=== PATIENT | male | born 1955 | race Caucasian/White ===

== ENCOUNTER → 2018-01-07 | Outpatient (REF) | payer OTHER ==
[2018-01-07 11:18] LABS: COLLAGEN EPINEPHRINE 108 SECONDS (74-162)
== END ==
LOC: M LAB REF 10:35
DX: H05 Disorders of orbit (principal); H02.831 Dermatochalasis of right upper eyelid; H02.834 Dermatochalasis of left upper eyelid
CPT/HCPCS: 85576

== ENCOUNTER 2020-01-04 14:31 | Inpatient (IN) | payer BC, SELFPAY ==
[~2020-01-04] VITALS: Ht 180.3 cm; Wt 97.0 kg
[~2020-01-04 14:31] MED LIST: ASPI325T PO; CENTTAB47 PO; FENO54TA2 PO; LORTTAB5 PO; MILK10SU PO; SIMV40TA2 PO; [UNRECOGNIZED DRUG - CODE] PO
[2020-01-04 16:25] VITALS: BP 155/85
[2020-01-04] MEDS ORDERED: ACETAMINOPHEN TAB 650MG DOSE (2X325MG) PO PRN (17:00)
[2020-01-04] MEDS: D5W/0.45% SODIUM CHLORIDE 1,000 ML IV SCH (18:12)
[2020-01-04] MEDS ORDERED: KETOROLAC 30 MG/ML VIAL (J1885) IV PRN (18:15)
[2020-01-04 18:26] LABS: HEMATOCRIT 46.5 % (42.0-52.0); HEMOGLOBIN 16.2 g/dl (13.5-17.5); MEAN CORPUSCULAR HEMOGLOBIN 30.6 pg (27.0-33.0); MEAN CORPUSCULAR HGB CONC 34.8 g/dl (32.0-36.5); MEAN CORPUSCULAR VOLUME 87.9 fl (80.0-96.0); PLATELET COUNT, AUTOMATED 346 10^3/uL (150-450); RED BLOOD COUNT 5.29 10^6/uL (4.30-6.10); WHITE BLOOD COUNT 12.8 10^3/uL (4.0-10.0)
[2020-01-04 18:37] LABS: INR 1.07; PROTHROMBIN TIME 13.6 SECONDS (11.8-14.0)
--- NOTE | 2020-01-04 18:43 | HPEPDOC ---
[facility] Medical History & Physical Date of Admission Jan 04, 2020 Date of Service: Jan 04, 2020 Attending Physician: ARUNA CASANOVA MD History and Physical CHIEF COMPLAINT: Abdominal pain HISTORY OF PRESENT ILLNESS: Mr. Parrish is a 64 YOM who presented to [place] for acute abdominal pain. He states that this pain began last night while at work, roughly around 3am. He describes the pain as a vague, diffuse pain located around his mid epigastrium rated as a 9/10 pain. He states that he has not had a previous episode of pain like this and endorses no alleviating or remitting factors. In addition he has had a decreased appetite accompanied with nausea without emesis. In addition he noticed a decreased frequency and size of bowel movements over the past few days and has had decreased flatus. He had a small bowel movement this AM shortly after the pain began and denies tarry stool or johnna blood. Constitutional: Denies weight loss, weight gain, fevers, chills, or night sweats Eyes: Denies visual changes, double vision, blurry vision, floaters, or feeling like a curtain pulled down. Ear nose throat: Denies runny nose, epistaxis, sinus pain, tinnitus, sore throat, or odynophasia Cardiovascular: Denies chest pain, shortness of breath, paroxysmal nocturnal dyspnea, orthopnea, edema, or palpitations. Respiratory: Denies cough, sputum production, wheezes, hemoptysis, or shortness of breath Gastrointestinal: Endorses abdominal pain, loss of appetite and nausea w/o vomitting. Denies difficulty swallowing, vomiting, diarrhea, constipation hematemesis, hematochezia, melena, or tenesmus Genitourinary: Denies hematuria, polyuria, dysuria, hesitancy, or dribbling Musculoskeletal: Denies joint swelling, decreased range of motion, crepitus, or new arthritis Integumentary: Denies pruritus, rashes, or lesions Neuro: Denies any changes to sight/smell/hearing/taste, seizures, faint, headaches, paresthesias, anesthesias Psychiatric: Endorses depression, denies anxiety, paranoia, anhedonia, or episodes of campbell Endocrine: Denies diarrhea, increased appetite, tremor, palpitations, constipation, dry skin, polydipsia, polyuria, polyphagia Hematologic: Denies any anemia, purpura, or petechiae. No easy bruising or bleeding Lymphatic: Denies any new lumps or bumps anywhere. PAST MEDICAL HISTORY: 1. HTN 2. Hyperlipidemia 3. Depression 4. Diverticulosis PAST SURGICAL HISTORY: 1. Ventral herniorrhaphy 2. Right inguinal herniorrhaphy X4 3. Cholecystectomy 4. Colonoscopy >10 years prior SOCIAL HISTORY: Marital status: Single Resides: Alone Employment: [employer] Tobacco use: Denies current use. Smoked during adolescents. ETOH: Denies Illicit drug use: Cocaine use 30 years ago. Weekly marijuana use. IV drug use: Denies FAMILY HISTORY: Father: DM, CAD, Colon CA Mother: DM, CAD, Lung CA Siblings: Brother-unknown CA ALLERGIES: Please see below. REVIEW OF SYSTEMS: CONSTITUTIONAL: Endorses decreased appetite and nausea. Denies fever, chills, fatigue, weight loss. HOME MEDICATIONS: Please see below. PHYSICAL EXAMINATION: VITAL SIGNS: See below. GENERAL APPEARANCE: 64 year old man appearing older than stated age laying on hospital bed in mild distress. HEENT: Atraumatic, normocephalic, anicteric sclera, moist mucus membranes, no adenopathy. CARDIOVASCULAR: RRR w/o murmurs, rubs, or gallops. RESPIRATORY: Lungs CTA bilaterally in all cuellar w/o rales, rhonchi, or wheezing. GASTROINTESTINAL: Distended abd with a well healed ventral scar and multiple scars from prior laparoscopic instrumentation. Distant and hypoactive bowel sounds noted throughout. Tympanic to percussion in the upper quadrants. Tenderness noted on exam with point of maximal tenderness in the L upper quadrant. No organomegaly appreciated. No guarding, rigidity, or rebound tenderness noted. MUSCULOSKELETAL: Full range of motion in all 4 extremities with 5/5 strength. NEURO: A&O x3, sensation intact in all extremities LABORATORY DATA: See below. IMAGING: CT abd/pelvis with contrast from [facility]: "Appendix normal, mild to moderately dilated loops of small bowel, diverticulosis without signs of diverticulitis" MICROBIOLOGY: Please see below. ASSESSMENT/PLAN: This is a 64 year old man transferred from [place] for abdominal pain, decreased appetite, decreased bowel movements, and lack of passing gas, with CT of abdomen showing dilated loops. He was transferred for suspected small bowel obstruction possibly secondary to adhesions as a result of his multiple abdominal surgeries. Dr. Pelayo director distribution general surgeon has been consulted and has agreed to see the patient. 1. Suspected small bowel obstruction possibly 2/2 adhesions -Keep pt NPO with sips and chips. IVF on board -NG tube placement with low interment suctioning -Encourage early and frequent ambulation -Pain control with prn Toradol. Resting comfortably upon reassessment -Surgery consulted, appreciate Dr. Pelayo's input: NGT, IVF, sips/chips 2. Lactic acidosis -Mild elevation at 2.6 at [facility] -Pt does not appear septic, afebrile, vitals stable -Likely secondary due to acute abdominal process. No suspected infectious source -Continue IVF, repeat labs pending 3. HTN -controlled w/o medications -will monitor 4. Hyperlipidemia -Hold home meds as pt is NPO 5. Hyperglycemia -No definitive diagnosis of diabetes -Will continue to monitor and recommend outpatient f/u DVT Prophylaxis: Mechanical Code Status: DNR/DNI discussed in depth with patient. Disposition: Admission to medical service pending surgery evaluation, labs, imaging. Home Medications Scheduled (Centrum) Tab, 1 TAB PO DAILY Acetaminophen (Tylenol) 80 Mg Chew, 650 MG PO Every 4hrs as needed Acetaminophen/Hydrocodone (Lortab 7.5/500) 1 Tab Tab, 1 TAB PO Every 4-6hrs as need Aspirin (Aspirin) 325 Mg Tab, 325 MG PO Q2D Fenofibrate (Fenofibrate) 54 Mg Tab, 54 MG PO DAILY Magnesium Hydroxide (Milk of Magnesia) 400 Ml Conc, 30 ML PO DAILYPRN Simvastatin (Simvastatin) 40 Mg Tab, 40 MG PO DAILY Allergies Coded Allergies: Penicillins (Verified Allergy, Severe, RESP DEPRESSION/SOB, 01/04/20) A-FIB/CHADSVASC A-FIB History Current/History of A-Fib/PAF?: No Current PO Anticoag Therapy: No GME ATTESTATION GME ATTESTATION My faculty preceptor for this patient encounter was physically present during the encounter and was fully available. All aspects of the patient interview, examination, medical decision making process, and medical care plan development were reviewed and approved by the faculty preceptor. The faculty preceptor is aware and concurs with the plan as stated in the body of this note and will attest to such by his/her cosignature. RENARD RUSSELL OMS-3 Jan 04, 2020 18:43
[2020-01-04 18:58] LABS: ALBUMIN 3.7 GM/DL (3.2-5.2); ALT/SGPT 41 U/L (12-78); BILIRUBIN,TOTAL 0.6 MG/DL (0.2-1.0); BLOOD UREA NITROGEN 11 MG/DL (7-18); CALCIUM LEVEL 8.6 MG/DL (8.8-10.2); CARBON DIOXIDE LEVEL 26 MEQ/L (21-32); CHLORIDE LEVEL 108 MEQ/L (98-107); CK-MB VALUE MASS 9.8 NG/ML (<3.6); CPK CREATINE PHOSPHOKINASE 368 U/L (39-308); CREATININE FOR GFR 0.87 MG/DL (0.70-1.30); GLOMERULAR FILTRATION RATE > 60.0 (>49); GLUCOSE, FASTING 106 MG/DL (70-100); MB/CK RELATIVE INDEX 2.66 (< OR =4); SODIUM LEVEL 140 MEQ/L (136-145); TOTAL PROTEIN 6.6 GM/DL (6.4-8.2); TROPONIN I < 0.02 NG/ML (< 0.10)
--- NOTE | 2020-01-04 19:30 | REP ---
Portable chest x-ray: Single view. History: Abdomen pain. Comparison study: April 23, 2013. Findings: Nasogastric tube enters left upper quadrant of the abdomen. There is minimal discoid atelectasis at the left base along the left hemidiaphragm. Lungs are otherwise symmetrically aerated and clear. Heart is not enlarged. Pleural angles themselves are sharp. Impression: Minimal plate-like atelectasis left base. NG tube in place. Otherwise no acute disease. Electronically Signed by Rakesh Guerra MD 01/04/2020 07:21 P
--- NOTE | 2020-01-04 19:32 | REP ---
KUB: Two views. History: Abdomen pain Comparison radiographs April 23, 2013. Findings: There is a surgical clip in the right upper quadrant of the abdomen. The urine is somewhat distended with contrast opacified urine apparently related to recent CT scanning or other contrast administration. There is air and stool in a nondistended colon proximally and distally. There is a dilated small bowel loops filled with air in the left mid abdomen question ileus versus obstruction. Psoas margins are intact. Impression: NG tube to the left upper quadrant. Dilated small bowel loops in the left central abdomen, ileus versus early or partial obstruction. Surgical clip right upper quadrant. Urinary bladder is distended with contrast opacified urine. Electronically Signed by Rakesh Guerra MD 01/04/2020 07:23 P
[2020-01-04 22:00] VITALS: BP 152/83
[2020-01-05 06:00] VITALS: BP 149/83
[2020-01-05] MEDS: D5W/0.45% SODIUM CHLORIDE 1,000 ML IV SCH ×2 (06:22→21:53)
[2020-01-05 07:16] LABS: BASO # 0.1 10^3/uL (0.0-0.2); BASO % 0.5 % (0.0-1.0); EOS # 0.2 10^3/uL (0.0-0.5); EOS % 1.8 % (0.0-3.0); HEMATOCRIT 45.4 % (42.0-52.0); HEMOGLOBIN 15.4 g/dl (13.5-17.5); LYMPH # 1.3 10^3/uL (1.5-5.0); LYMPH % 12.8 % (24.0-44.0); MEAN CORPUSCULAR HEMOGLOBIN 30.3 pg (27.0-33.0); MEAN CORPUSCULAR HGB CONC 33.9 g/dl (32.0-36.5); MEAN CORPUSCULAR VOLUME 89.2 fl (80.0-96.0); MONO % 9.2 % (0.0-5.0); NEUTROPHILS # 7.8 10^3/uL (1.5-8.5); NEUTROPHILS % 75.5 % (36.0-66.0); PLATELET COUNT, AUTOMATED 308 10^3/uL (150-450); RED BLOOD COUNT 5.09 10^6/uL (4.30-6.10); WHITE BLOOD COUNT 10.3 10^3/uL (4.0-10.0)
[2020-01-05 07:36] LABS: BLOOD UREA NITROGEN 9 MG/DL (7-18); CARBON DIOXIDE LEVEL 28 MEQ/L (21-32); CHLORIDE LEVEL 108 MEQ/L (98-107); CREATININE FOR GFR 0.88 MG/DL (0.70-1.30); GLOMERULAR FILTRATION RATE > 60.0 (>49); GLUCOSE, FASTING 114 MG/DL (70-100); MAGNESIUM LEVEL 2.2 MG/DL (1.8-2.4); POTASSIUM SERUM 3.6 MEQ/L (3.5-5.1); SODIUM LEVEL 140 MEQ/L (136-145)
[2020-01-05] MEDS: PANTOPRAZOLE 40MG INJ (PROTONIX) (C9113) IV SCH (08:36)
--- NOTE | 2020-01-05 13:09 | IPNPDOC ---
Text Note Date of Service The patient was seen on 01/05/20. NOTE S: Pt examined at bedside. Pt states that he is feeling better since the NGT was placed. He was able to sleep through the night without event. He states this morning that he is having less pain and that he feels less bloated. He has still not had a bowel movement or passed flatus. He denied any CP/SOB/Fever/Chills. PE: Vitals: see below General: NAD, A&Ox3, resting comfortably in bed HEENT: NCAT, EOMI, anicteric sclera, MMM. NGT noted in nostril. CV: RRR, no murmurs or clicks or rub. No edema RESP: CTAB, no w/r/r/ ABD:Less distended today. BS remain hypoactive and distant. Abdomen remains tender on deep palpation within the epigastrium. No guarding, rigidity, or rebound tenderness noted. EXTREMITIES: 2+ radial pulses b/l, able to move all extremities NEURO: no focal deficits or acute changes ASSESSMENT/PLAN: This is a 64 year old man transferred from [place] for abdominal pain, decreased appetite, decreased bowel movements, and lack of passing gas, with CT of abdomen showing dilated loops. He was transferred for suspected small bowel obstruction possibly secondary to adhesions as a result of his multiple abdominal surgeries. Dr. Pelayo employee communications coordinator general surgeon has been consulted and has agreed to see the patient. 1. Suspected small bowel obstruction possibly 2/2 adhesions -Keep pt NPO with sips and chips. IVF on board -NG tube placement with low interment suctioning -Encourage early and frequent ambulation -Pain control with prn Toradol. Resting comfortably upon reassessment -Surgery consulted, appreciate Dr. Pelayo's input: NGT, IVF, sips/chips, IV Protonix 2. Lactic acidosis -resolved with IVF -Pt continues to not appear septic, afebrile, vitals stable -Elevation likely secondary due to acute abdominal process. No suspected inf ectious source -Continue IVF 3. HTN -controlled w/o medications -will monitor 4. Hyperlipidemia -Hold home meds as pt is NPO 5. Hyperglycemia -No definitive diagnosis of diabetes -Will continue to monitor and recommend outpatient f/u DVT Prophylaxis: Mechanical Code Status: DNR/DNI discussed in depth with patient. Disposition: Pending clinical improvement. Possible surgery if pt doesn't improve by later this week. VS,Fishbone, I+O VS, Fishbone, I+O Laboratory Tests 01/04/20 18:13 01/05/20 06:47 Vital Signs Date Time Temp Pulse Resp B/P (MAP) Pulse Ox O2 Delivery O2 Flow Rate FiO2 01/05/20 06:00 98.4 67 18 149/83 (105) 97 Room Air I&O- Last 24 Hours up to 6 AM 01/05/20 06:00 Intake Total 420 ml Output Total 600 ml Balance -180 ml GME ATTESTATION GME ATTESTATION My faculty preceptor for this patient encounter was physically present during the encounter and was fully available. All aspects of the patient interview, examination, medical decision making process, and medical care plan development were reviewed and approved by the faculty preceptor. The faculty preceptor is aware and concurs with the plan as stated in the body of this note and will attest to such by his/her cosignature. RENARD RUSSELL OMS-3 Jan 05, 2020 10:10
[2020-01-05 14:00] VITALS: BP 135/69
--- NOTE | 2020-01-05 15:21 | REP ---
CHEST, PORTABLE: Two AP portable views of the chest are performed. Nasogastric tube is seen. The tip is in the body of the stomach. Linear fibroatelectatic change in the left base is unchanged. The remaining lung cuellar are clear. Heart and mediastinum are unchanged. Electronically Signed by Tor Ga MD 01/06/2020 04:47 P
--- NOTE | 2020-01-05 19:26 | CR ---
DATE OF CONSULTATION: 01/05/2020 REASON FOR CONSULTATION: Bowel obstruction. HISTORY OF PRESENT ILLNESS: The patient is a 64-year-old male who originally presented to the [facility] yesterday morning, was found to have signs of a small bowel obstruction. He complained of pain and his lower abdomen that started while he was at work, around three in the morning. The pain was diffuse, mainly across his entire lower abdomen. It did not really appear to radiate anywhere. He had no nausea or vomiting with it. No fevers or chills. No cough, shortness of breath. He did have a bowel movement after the pain started, but has not had any flatus or bowel movements since then. He denied any blood or problems with that stool as well. After presenting to [place], he had a slightly elevated white count, slightly dilated loops of bowel in the left abdomen suspicious for bowel obstruction, but since he had no nausea or vomiting, they did not place and nasogastric (NG) tube. The surgeon there is a locums and was leaving today, so they did not want to admit him and they transferred him over here. This morning, he has the NG tube in place. He feels much improved. His abdomen is soft, minimal tenderness. No nausea or vomiting. No current complaints. He has had multiple previous abdominal surgeries, with the last surgery being back in 2012, where he had a large, 20 cm mesh placed. No problems with bowel obstructions or surgeries since then. PAST MEDICAL HISTORY: 1. Hypertension. 2. Hyperlipidemia 3. Depression. 4. Diverticulosis. PAST SURGICAL HISTORY: 1. Ventral hernia repair. 2. Right inguinal hernia repair times four. 3. Cholecystectomy. 4. Last colonoscopy was over 10 years ago. SOCIAL HISTORY: Denies drug, alcohol, tobacco abuse. FAMILY HISTORY: Noncontributory. ALLERGIES: Please see med rec. MEDICATIONS: Please see med rec. REVIEW OF SYSTEMS: Per positives and negatives as stated in the history of present illness (HPI). PHYSICAL EXAMINATION: GENERAL: Alert and oriented times three, in no acute distress. VITAL SIGNS: Temperature 98.4, pulse 67, respirations 18, blood pressure 149/83, pulse oximetry 97% on room air. HEENT: Pupils equally round and react to light and accommodation. HEART: S1, S2. Regular rate and rhythm. LUNGS: Clear to auscultation bilaterally. ABDOMEN: Soft, nontender, nondistended. No palpable ventral hernias; however, there are multiple previous scars along the abdominal wall from previous surgeries. EXTREMITIES: No clubbing, cyanosis or edema. LABORATORY DATA: White count 10.3 down from 12.8 yesterday, hemoglobin 15.4, platelets 308. creatinine 0.88. IMAGING STUDIES: Abdominal x-ray obtained after admission here shows NG tube, dilated small bowel loops of the left central abdomen, ileus versus early or partial obstruction. Surgical clips in the right upper quadrant, urinary bladder IS distended with contrast in the urine. ASSESSMENT AND PLAN: The patient is a 64-year-old male with signs of partial versus complete bowl obstruction of the left midabdomen, likely secondary to adhesions from prior surgeries. Recommendation at this time is to continue with ambulation, frequent movement and NG tube decompression. We will keep him on sips and chips for now, give him another 48-72 hours to see if he will resolve the symptoms on his own. If he does not, then we will discuss laparoscopic intervention in the next couple of days.
[2020-01-05 22:00] VITALS: BP_SYST 124; BP_DIAS 113; BP_DIAS 70
[2020-01-06 06:00] VITALS: BP 131/61
--- NOTE | 2020-01-06 07:50 | IPNPDOC ---
Text Note Date of Service The patient was seen on 01/06/20. NOTE S: Pt examined at bedside. Pt states that he is feeling better but has noticed that his belly has gotten bigger since yesterday. He notes some discomfort and cramping in the RUQ. He has been passing flatus but has not been able to pass any stool. He has been actively ambulating throughout the day. He denied any CP/SOB/N/V/Fever/Chills. PE: Vitals: see below General: NAD, A&Ox3, resting in bed HEENT: NCAT, EOMI, anicteric sclera, MMM. NGT noted in right nostril. CV: RRR, no murmurs or clicks or rub. No edema RESP: CTAB, no w/r/r/ ABD:More distended today than yesterday. BS remain hypoactive and distant. Abdomen is more tender today on deep palpation within the epigastrium and RUQ. No guarding, rigidity, or rebound tenderness noted. NGT tube drainage is brown in color today and more closely resembles fecal material compared to gastric contents. EXTREMITIES: 2+ radial pulses b/l, able to move all extremities NEURO: no focal deficits or acute changes ASSESSMENT/PLAN: This is a 64 year old man transferred from [place] for abdominal pain, decreased appetite, decreased bowel movements, and lack of passing gas, with CT of abdomen showing dilated loops. He was transferred for suspected small bowel obstruction possibly secondary to adhesions as a result of his multiple abdominal surgeries. Dr. Pelayo nutrition representative general surgeon has been consulted and has agreed to see the patient. 1. Suspected small bowel obstruction possibly 2/2 adhesions -Keep pt NPO with sips and chips. IVF on board -NG tube placement with low interment suctioning -Encourage early and frequent ambulation -Pain control with prn Toradol. Resting upon reassessment -Surgery consulted, appreciate Dr. Pelayo's input: NGT, IVF, sips/chips, IV Protonix, repeat Xray today, discuss plans for surgery if no resolution. 2. Lactic acidosis -resolved with IVF -Pt continues to not appear septic, afebrile, vitals stable -Elevation likely secondary due to acute abdominal process. No suspected infectious source -Continue IVF 3. HTN -controlled w/o medications -will monitor 4. Hyperlipidemia -Hold home meds as pt is NPO 5. Hyperglycemia -No definitive diagnosis of diabetes -Will continue to monitor and recommend outpatient f/u DVT Prophylaxis: Mechanical, Lovenox Code Status: DNR/DNI discussed in depth with patient. Disposition: Pending clinical improvement. Possible surgery if pt doesn't improve by later today or this weekend pending general surgery. VS,Fishbone, I+O VS, Fishbone, I+O Vital Signs Date Time Temp Pulse Resp B/P (MAP) Pulse Ox O2 Delivery O2 Flow Rate FiO2 01/06/20 06:00 98.7 68 18 131/61 (84) 95 Room Air I&O- Last 24 Hours up to 6 AM 01/06/20 06:00 Intake Total 1600 ml Output Total 1725 ml Balance -125 ml GME ATTESTATION GME ATTESTATION My faculty preceptor for this patient encounter was physically present during the encounter and was fully available. All aspects of the patient interview, examination, medical decision making process, and medical care plan development were reviewed and approved by the faculty preceptor. The faculty preceptor is aware and concurs with the plan as stated in the body of this note and will attest to such by his/her cosignature. RENARD RUSSELL OMS-3 Jan 06, 2020 07:50
--- NOTE | 2020-01-06 07:51 | IPNPDOC ---
Text Note Date of Service The patient was seen on 01/06/20. NOTE No acute events overnight. Tolerating NGT. He is ambulating in the halls, and passed some flatus, but he still feels a little bloated on the right side of his abdomen this am. No abd pains. VSSAF NAD abd - soft, NT, ND, multiple scars labs - pending A) 64y/o male with SBO likely secondary to adhesions P) NGT to LIS ambulate and frequent movement IVF protonix DVT prophylaxis check abd xray to see if there is any improvement If no improvement, then we will discuss surgery for either this afternoon or Thursday. He is currently leaning towards Thursday because he wants to avoid surgery if possible because of multiple prior surgeries, and he does not want to miss too much work. Will discuss this with him again after the xray. Maxi Pelayo DO VS,Fishbone, I+O VS, Fishbone, I+O Vital Signs Date Time Temp Pulse Resp B/P (MAP) Pulse Ox O2 Delivery O2 Flow Rate FiO2 01/06/20 06:00 98.7 68 18 131/61 (84) 95 Room Air I&O- Last 24 Hours up to 6 AM 01/06/20 06:00 Intake Total 1600 ml Output Total 1725 ml Balance -125 ml MIRTA PELAYO DO Jan 06, 2020 07:51
[2020-01-06] MEDS: ENOXAPARIN 40 MG/0.4 ML SYRINGE (J1650) SC SCH (09:10)
[2020-01-06] MEDS: PANTOPRAZOLE 40MG INJ (PROTONIX) (C9113) IV SCH (09:10)
--- NOTE | 2020-01-06 09:10 | REP ---
Abdomen series: Three views. History: Small bowel obstruction. Comparison study January 04, 2020. Findings: Nasogastric tube is seen in place. Air and stool is noted in a nondistended colon. On the upright radiograph there is an air-fluid level in a single loop of mildly prominent small bowel in the right upper abdomen. This appears improved from January 03 March 21 study. Psoas margins and flank stripes are intact. There are is a clip in the right upper quadrant of the abdomen. Impression: Improved bowel gas pattern. No evidence of free subdiaphragmatic air. Electronically Signed by Rakesh Guerra MD 01/06/2020 09:02 A
[2020-01-06] MEDS: D5W/0.45% SODIUM CHLORIDE 1,000 ML IV SCH (09:11)
[2020-01-06 14:00] VITALS: BP 146/98
--- NOTE | 2020-01-06 14:41 | ECGEPIP ---
[facility] [place] Test Date: 2020-01-04 Pat Name: LACEY PHAN Department: Room: [place] [address] Gender: Male Fitness Professional: CHACE : 1955 Requested By: ARUNA CASANOVA Order Number: [id number] Reading MD: Troy Baldwin Measurements Intervals [place] Rate: 70 P: 63 NC: 150 QRS: -16 QRSD: 102 T: 37 QT: 379 QTc: 410 Interpretive Statements SINUS RHYTHM possible left atrial enlargement Comparison tracing not on file Electronically Signed on 01-06-2020 14:41:41 EST by Troy Baldwin
[2020-01-06 20:00] VITALS: BP 134/80
[2020-01-07] VITALS: BP 127/62
[2020-01-07] MEDS: D5W/0.45% SODIUM CHLORIDE 1,000 ML IV SCH ×2 (00:08→13:00)
[2020-01-07 07:10] LABS: HEMATOCRIT 45.2 % (42.0-52.0); HEMOGLOBIN 15.6 g/dl (13.5-17.5); MEAN CORPUSCULAR HEMOGLOBIN 30.4 pg (27.0-33.0); MEAN CORPUSCULAR HGB CONC 34.5 g/dl (32.0-36.5); MEAN CORPUSCULAR VOLUME 88.1 fl (80.0-96.0); PLATELET COUNT, AUTOMATED 317 10^3/uL (150-450); RED BLOOD COUNT 5.13 10^6/uL (4.30-6.10); WHITE BLOOD COUNT 6.2 10^3/uL (4.0-10.0)
[2020-01-07 07:33] LABS: BLOOD UREA NITROGEN 11 MG/DL (7-18); CALCIUM LEVEL 8.2 MG/DL (8.8-10.2); CARBON DIOXIDE LEVEL 28 MEQ/L (21-32); CHLORIDE LEVEL 106 MEQ/L (98-107); CREATININE FOR GFR 0.86 MG/DL (0.70-1.30); GLOMERULAR FILTRATION RATE > 60.0 (>49); GLUCOSE, FASTING 104 MG/DL (70-100); POTASSIUM SERUM 3.4 MEQ/L (3.5-5.1); SODIUM LEVEL 140 MEQ/L (136-145)
[2020-01-07 08:37] VITALS: BP 140/68
[2020-01-07] MEDS: PANTOPRAZOLE 40MG INJ (PROTONIX) (C9113) IV SCH (08:39)
[2020-01-07] MEDS: ENOXAPARIN 40 MG/0.4 ML SYRINGE (J1650) SC SCH (08:40)
--- NOTE | 2020-01-07 12:39 | IPNPDOC ---
Subjective Date Seen The patient was seen on 01/07/20. Subjective Chief Complaint/HPI Seen and examined at bedside, doing better today, minimal nausea, mild R sided abdominal pain General: Reports: Normal Appetite; Denies: Chills, Night Sweats, Fatigue, Malaise Constitutional: Denies: Chills, Fever, Night Sweats Eyes: Denies: Pain, Vision change ENT: Denies: Head Aches, Ear Pain, Dysphagia Skin: Denies: Rash, Lesions, Breakdown Pulmonary: Denies: Dyspnea, Cough Cardiovascular: Denies: Chest Pain, Palpitations, Orthopnea, Paroxysmal Noc. Dyspnea, Lt Headedness Gastrointestinal: Reports: Abdominal Pain (mild, R upper/lower quadrant); Denies: Nausea, Vomiting, Diarrhea, Constipation Genitourinary: Denies: Dysuria, Frequency, Incontinence, Retention Hematologic: Denies: Bruising, Bleeding Excessively Musculoskeletal: Denies: Neck Pain, Back Pain, Joint Pain, Muscle Pain, Spasms Neurological: Denies: Weakness, Numbness, Change in speech, Confusion Psych: Reports: Mood Normal; Denies: Depression, Memory Issues Objective Physical Examination General Exam: Positive: Alert, No Acute Distress Eye Exam: Positive: PERRLA, Conjunctiva & lids normal, EOMI; Negative: Sclera icteric ENT Exam: Positive: Atraumatic, Mucous membr. moist/pink, Pharynx Normal Neck Exam: Positive: Supple; Negative: JVD, thyromegaly Chest Exam: Positive: Clear to auscultation, Normal air movement Heart Exam: Positive: Rate Normal, Regular Rhythm, Normal S1, Normal S2; Negative: Murmurs, Rubs Telemetry: Positive: No significant arrhythmia Abdomen Exam: Positive: Normal bowel sounds, BS Hypoactive, Soft, Tenderness (mild tenderness R upper/lower quadrant); Negative: Hepatospenomegaly Male Exam: Positive: Normal Genital Exam Extremity Exam: Positive: Normal pulses; Negative: Clubbing, Cyanosis, Edema Skin Exam: Positive: Nl turgor and temperature; Negative: Rash, Breakdown Neuro Exam: Positive: Normal Gait, Normal Speech, Cranial Nerves 3-12 NL, Reflexes 2+ Psych Exam: Positive: Mental status NL, Mood NL, Oriented x 3 Assessment /Plan Assessment 1. Small bowel obstruction - surgery following. - NGT to LIS. - passing gas and two small bowel movements yesterday. - continue IVF, NGT, NPO. - encourage early and frequent ambulation. - pain control prn. - abdominal xray 01/05 with improvement. DVT Prophylaxis: Mechanical, Lovenox Code Status: DNR/DNI Plan/VTE VTE Prophylaxis Ordered?: Yes VS, I&O, 24H, Fishbone Vital Signs/I&O Vital Signs Date Time Temp Pulse Resp B/P (MAP) Pulse Ox O2 Delivery O2 Flow Rate FiO2 01/07/20 08:37 99.0 65 18 140/68 (92) 97 Room Air I&O- Last 24 Hours up to 6 AM 01/07/20 06:00 Intake Total 2125 ml Output Total 1075 ml Balance 1050 ml Laboratory Data 24H LABS Laboratory Tests 2 01/07/20 06:53: Nucleated Red Blood Cells % (auto) 0.0, Anion Gap 6L, Glomerular Filtration Rate > 60.0, Calcium Level 8.2L CBC/BMP Laboratory Tests 01/07/20 06:53 Microbiology Microbiology 01/04/20 Blood Culture - Preliminary, Resulted No Growth after 48 hours. All Specime... 01/04/20 Blood Culture - Preliminary, Resulted No Growth after 48 hours. All Specime... CANDIDA CASANOVA MD Jan 07, 2020 12:39
[2020-01-07 14:00] VITALS: BP 136/84
--- NOTE | 2020-01-07 15:25 | IPN ---
DATE OF SERVICE: 01/07/2020 History: The patient was admitted on 01/04/2020 with evidence for a bowel obstruction. His x-ray yesterday, according to Dr. Pelayo's sign-out to me, suggested that things were improved. The patient has had a bowel movement since yesterday, though he denies any flatus. He denies any abdominal pain this morning. He has been walking with the nasogastric (NG) tube clamped at times and otherwise to low intermittent suction. Vital signs: Show that he has been afebrile. Pulse is in the 60s generally with a good blood pressure and normal room air saturations. Intake and output: Show that yesterday he had 1800 in with 1750 out. His urine output has certainly been adequate. His NG output overnight was approximately 325 mL. Physical examination: Shows that the patient is alert and appears comfortable. Heart exam shows a regular rhythm in the 60s. The abdomen is flat. He has several scars from prior surgery. He has bowel sounds present in all four quadrants. There is no tympany to percussion and no tenderness to percussion. The abdomen is soft and without any tenderness identified. Laboratory studies: Show a white count of 6, hemoglobin of 16, hematocrit of 45, and platelet count of 317. Chemistry profile shows a sodium of 140, potassium 3.4, chloride 106, CO2 of 28, BUN of 11, creatinine 0.9, and a glucose of 104. Impression: The patient is looking quite comfortable today with no abdominal tenderness and only a small amount from his NG tube overnight. I suspect that he has resolved his small bowel obstruction. Plan: We will clamp his NG tube and let him try some sips of liquids. If he tolerates this well for the next 4-6 hours, I will consider discontinuing his NG tube and starting him on an unlimited clear-liquid diet.
[2020-01-07 20:00] VITALS: BP 123/63
[2020-01-08 04:00] VITALS: BP 133/62
[2020-01-08 07:18] LABS: HEMATOCRIT 45.6 % (42.0-52.0); HEMOGLOBIN 15.8 g/dl (13.5-17.5); MEAN CORPUSCULAR HEMOGLOBIN 30.3 pg (27.0-33.0); MEAN CORPUSCULAR HGB CONC 34.6 g/dl (32.0-36.5); MEAN CORPUSCULAR VOLUME 87.4 fl (80.0-96.0); PLATELET COUNT, AUTOMATED 330 10^3/uL (150-450); RED BLOOD COUNT 5.22 10^6/uL (4.30-6.10); WHITE BLOOD COUNT 7.8 10^3/uL (4.0-10.0)
[2020-01-08 07:28] LABS: BLOOD UREA NITROGEN 9 MG/DL (7-18); CALCIUM LEVEL 8.4 MG/DL (8.8-10.2); CARBON DIOXIDE LEVEL 27 MEQ/L (21-32); CHLORIDE LEVEL 108 MEQ/L (98-107); CREATININE FOR GFR 0.85 MG/DL (0.70-1.30); GLOMERULAR FILTRATION RATE > 60.0 (>49); GLUCOSE, FASTING 101 MG/DL (70-100); POTASSIUM SERUM 3.6 MEQ/L (3.5-5.1); SODIUM LEVEL 142 MEQ/L (136-145)
[2020-01-08 08:00] VITALS: BP 130/66
--- NOTE | 2020-01-08 08:06 | IPN ---
DATE: 01/07/2020 HISTORY: The patient has tolerated his nasogastric (NG) tube clamped for the last 5-1/2 hours. He has taken some sips of liquids and has had no return of any abdominal pain or nausea or vomiting. He reports passage of small amount of flatus. Physical exam shows that the abdomen is flat, soft and nontender. IMPRESSION: The patient's obstruction seems to have resolved with no return of symptoms with his NG tube clamped during this period of time. PLAN: The patient's NG tube was removed and he will be started on clear liquids tonight. If he tolerates these overnight, we can advance his diet the morning and consider sending him home.
[2020-01-08] MEDS: ENOXAPARIN 40 MG/0.4 ML SYRINGE (J1650) SC SCH (09:01)
[2020-01-08] MEDS: PANTOPRAZOLE 40MG INJ (PROTONIX) (C9113) IV SCH (09:01)
--- NOTE | 2020-01-08 09:18 | IPNPDOC ---
Subjective Date Seen The patient was seen on 01/08/20. Objective Physical Examination General Exam: Positive: Alert, No Acute Distress Eye Exam: Positive: PERRLA, Conjunctiva & lids normal, EOMI; Negative: Sclera icteric ENT Exam: Positive: Atraumatic, Mucous membr. moist/pink, Pharynx Normal Neck Exam: Positive: Supple; Negative: JVD, thyromegaly Chest Exam: Positive: Clear to auscultation, Normal air movement Heart Exam: Positive: Rate Normal, Regular Rhythm, Normal S1, Normal S2; Negative: Murmurs, Rubs Telemetry: Positive: No significant arrhythmia Abdomen Exam: Positive: Normal bowel sounds, BS Hypoactive, Soft, Tenderness (mild tenderness R upper/lower quadrant); Negative: Hepatospenomegaly Male Exam: Positive: Normal Genital Exam Extremity Exam: Positive: Normal pulses; Negative: Clubbing, Cyanosis, Edema Skin Exam: Positive: Nl turgor and temperature; Negative: Rash, Breakdown Neuro Exam: Positive: Normal Gait, Normal Speech, Cranial Nerves 3-12 NL, Reflexes 2+ Psych Exam: Positive: Mental status NL, Mood NL, Oriented x 3 Assessment /Plan Assessment 1. Small bowel obstruction - surgery following. - NGT removed yesterday, started on clear liquids. - DVT Prophylaxis: Mechanical, Lovenox Code Status: DNR/DNI Plan/VTE VTE Prophylaxis Ordered?: Yes VS, I&O, 24H, Fishbone Vital Signs/I&O Vital Signs Date Time Temp Pulse Resp B/P (MAP) Pulse Ox O2 Delivery O2 Flow Rate FiO2 01/08/20 08:00 97.9 68 18 130/66 (87) 97 Room Air I&O- Last 24 Hours up to 6 AM 01/08/20 06:00 Intake Total 2700 ml Output Total 1840 ml Balance 860 ml Laboratory Data 24H LABS Laboratory Tests 2 01/08/20 06:51: Nucleated Red Blood Cells % (auto) 0.0, Anion Gap 7L, Glomerular Filtration Rate > 60.0, Calcium Level 8.4L CBC/BMP Laboratory Tests 01/08/20 06:51 Microbiology Microbiology 01/07/20 Stool Occult Blood (YAS) - Final, Complete 01/04/20 Blood Culture - Preliminary, Resulted No Growth after 72 hours. All specime... 01/04/20 Blood Culture - Preliminary, Resulted No Growth after 72 hours. All specime... CANDIDA CASANOVA MD Jan 08, 2020 09:18
--- NOTE | 2020-01-08 12:43 | DS.PDOC ---
Discharge Summary General Date of Admission Jan 04, 2020 at 16:25 Date of Discharge 01/08/20 Discharge Summary PROCEDURES PERFORMED DURING STAY: [None]. ADMITTING DIAGNOSES: 1. partial SBO DISCHARGE DIAGNOSES: 1. partial SBO COMPLICATIONS/CHIEF COMPLAINT: Small Bowel Obstruction. HISTORY OF PRESENT ILLNESS: Please refer to for detailed HPI. HOSPITAL COURSE: Patient was admitted to the hospital and treated for the following conditions: 1. partial small bowel obstruction - surgery Dr. Avila consulted for management, NGT was placed in ED. - patient with improvement in symptoms, NGT subsequently clamped. - repeat abdominal film with improvement in bowel gas pattern. - NGT was removed on 01/06, patient started on clear liquids and has been tolerating. - regular diet started on 01/07, patient tolerating without issue. - clear by surgery for discharge home. DISCHARGE MEDICATIONS: Please see below. ALLERGIES: Please see below. PHYSICAL EXAMINATION ON DISCHARGE: VITAL SIGNS: Please see below. GENERAL: awake, NAD HEENT: NCAT, anicteric sclera, PERRLA NECK: supple, no JVD, no masses CARDIOVASCULAR EXAMINATION: NS1S2, regular, no M/R/G RESPIRATORY EXAMINATION: CTA b/l, no wheezes/rales/rhonchi ABDOMINAL EXAMINATION: NT/ND, positive bowel sounds x 4 EXTREMITIES: no cyanosis,clubbing, edema SKIN: warm, no rashes NEUROLOGICAL EXAMINATION: AAO x 3, no focal motor/sensory deficits PSYCHIATRIC EXAMINATION: calm, cooperative, normal affect LABORATORY DATA: Please see below. IMAGING: Abdominal X ray: 01/04/20 Impression: NG tube to the left upper quadrant. Dilated small bowel loops in the left central abdomen, ileus versus early or partial obstruction. Surgical clip right upper quadrant. Urinary bladder is distended with contrast opacified urine. Abdominal X ray: 01/06/20 Impression: Improved bowel gas pattern. No evidence of free subdiaphragmatic air. PROGNOSIS: good ACTIVITY: [As tolerated]. DIET: high fiber diet DISPOSITION: home DISCHARGE INSTRUCTIONS: 1. follow up with PCP in 1 week ITEMS TO FOLLOWUP ON ON OUTPATIENT: 1. none DISCHARGE CONDITION: [Stable]. TIME SPENT ON DISCHARGE: Greater than [30] minutes. Vital Signs/I&Os Vital Signs Date Time Temp Pulse Resp B/P (MAP) Pulse Ox O2 Delivery O2 Flow Rate FiO2 01/08/20 08:00 97.9 68 18 130/66 (87) 97 Room Air I&O- Last 24 Hours up to 6 AM 01/08/20 06:00 Intake Total 2700 ml Output Total 1840 ml Balance 860 ml Laboratory Data Labs 24H Laboratory Tests 2 01/08/20 06:51: Nucleated Red Blood Cells % (auto) 0.0, Anion Gap 7L, Glomerular Filtration Rate > 60.0, Calcium Level 8.4L CBC/BMP Laboratory Tests 01/08/20 06:51 Microbiology Microbiology 01/07/20 Stool Occult Blood (YAS) - Final, Complete 01/04/20 Blood Culture - Preliminary, Resulted No Growth after 72 hours. All specime... 01/04/20 Blood Culture - Preliminary, Resulted No Growth after 72 hours. All specime... Discharge Medications Scheduled (Centrum) Tab, 1 TAB PO DAILY, (Reported) Acetaminophen (Tylenol) 80 Mg Chew, 650 MG PO Every 4hrs as needed, (Reported) Acetaminophen/Hydrocodone (Lortab 7.5/500) 1 Tab Tab, 1 TAB PO Every 4-6hrs as need, (Reported) Aspirin (Aspirin) 325 Mg Tab, 325 MG PO Q2D, (Reported) Fenofibrate (Fenofibrate) 54 Mg Tab, 54 MG PO DAILY, (Reported) Magnesium Hydroxide (Milk of Magnesia) 400 Ml Conc, 30 ML PO DAILYPRN, (Reported) Simvastatin (Simvastatin) 40 Mg Tab, 40 MG PO DAILY, (Reported) Allergies Coded Allergies: Penicillins (Verified Allergy, Severe, RESP DEPRESSION/SOB, 01/04/20) CANDIDA CASANOVA MD Jan 08, 2020 12:43
--- NOTE | 2020-01-08 19:55 | IPN ---
DATE: 01/08/2020 HISTORY: The patient was admitted with evidence of a bowel obstruction on 01/04/2020. Yesterday he tolerated his NG tube clamped and had flatus with no pain. His NG tube was removed yesterday late afternoon and he was started on unlimited clear liquids. He tolerated these well and was started on regular food this morning. He has tolerated this well as well. Vital signs show that he has been afebrile with a pulse in the 60s and low 70s and good blood pressure. Intake and output shows that yesterday he had 2600 in with 1840 recorded out. He has voided multiple times today and has an excellent oral intake. PHYSICAL EXAMINATION: The patient is sitting up on the edge of the bed eating lunch and denies any abdominal pain. The abdomen is soft and nontender. Laboratory studies show a white count of 8, hemoglobin 16, hematocrit of 46. His chemistry profile shows a sodium 142, potassium 3.6, chloride 108, CO2 of 27, BUN of 9, creatinine 0.85 and glucose of 101. IMPRESSION: Patient has resolved his bowel obstruction. He is eating regular food with no nausea, vomiting or abdominal pain. RECOMMENDATIONS: At this point the patient can be discharged home. He does not need to follow in the surgery office as there will be no need for any intervention at this point. I did international student counselor him that there is a chance that he could have a recurrence of his obstruction and that there is no way to predict that or prevent it. He should return to the emergency department for any recurrence of symptoms.
== END 2020-01-08 15:15 | disposition home or self-care (01) | DRG 247 ==
LOC: M MS5PR 16:25 → M PED 01-06 18:50
PROVIDERS: ADMIT Internal Medicine; ATTEND Internal Medicine
DX: K56.600 Partial intestinal obstruction, unspecified as to cause (principal); E87.2 Acidosis; Z88.0 Allergy status to penicillin; Z79.82 Long term (current) use of aspirin; Z79.899 Other long term (current) drug therapy; K57.30 Diverticulosis of large intestine without perforation or abscess without bleeding; E78.5 Hyperlipidemia, unspecified; F32.9 Major depressive disorder, single episode, unspecified; R73.9 Hyperglycemia, unspecified; I10 Essential (primary) hypertension

== ENCOUNTER 2020-03-08 09:51 | Inpatient (IN) | payer BC ==
[2020-03-08 12:50] VITALS: BP 128/79
[2020-03-08] MEDS ORDERED: HEPARIN SOD (PORCINE) 5000UNITS/ML VIAL (J1644 PER 1000UNITS) SQ SCH (14:00)
[2020-03-08 14:17] LABS: BASO % 0.4 % (0.0-1.0); EOS # 0.1 10^3/uL (0.0-0.5); EOS % 1.2 % (0.0-3.0); HEMATOCRIT 47.8 % (42.0-52.0); HEMOGLOBIN 16.3 g/dl (13.5-17.5); LYMPH # 0.8 10^3/uL (1.5-5.0); LYMPH % 8.6 % (24.0-44.0); MEAN CORPUSCULAR HEMOGLOBIN 30.6 pg (27.0-33.0); MEAN CORPUSCULAR HGB CONC 34.1 g/dl (32.0-36.5); MEAN CORPUSCULAR VOLUME 89.8 fl (80.0-96.0); MONO # 1.3 10^3/uL (0.0-0.8); MONO % 14.1 % (0.0-5.0); NEUTROPHILS # 7.2 10^3/uL (1.5-8.5); NEUTROPHILS % 75.5 % (36.0-66.0); PLATELET COUNT, AUTOMATED 317 10^3/uL (150-450); RED BLOOD COUNT 5.32 10^6/uL (4.30-6.10); WHITE BLOOD COUNT 9.5 10^3/uL (4.0-10.0)
[2020-03-08] MEDS: MORPHINE 2 MG/ML 1ML VIAL (J2270) IV PRN ×2 (14:20→21:41)
[2020-03-08] MEDS: NS 1,000 ML IV SCH ×2 (14:20→20:40)
[2020-03-08] MEDS ORDERED: LOSA25TA14 PO (14:21)
[2020-03-08] MEDS ORDERED: TYLE650T38 PO (14:21)
[2020-03-08] MEDS ORDERED: ATOR80TA59 PO (14:21)
[2020-03-08] MEDS ORDERED: FLUO40CA PO (14:21)
[2020-03-08] MEDS ORDERED: MULT1TAB50 PO (14:21)
[2020-03-08] MEDS ORDERED: ASPI-161 PO (14:21)
[2020-03-08 14:29] LABS: INR 1.09; PROTHROMBIN TIME 13.8 SECONDS (11.8-14.0)
[2020-03-08 14:30] LABS: PARTIAL THROMBOPLASTIN TIME 23.6 SECONDS (25.0-38.4)
--- NOTE | 2020-03-08 14:43 | HPEPDOC ---
[facility] Medical History & Physical Date of Admission March 08, 2020 Date of Service: March 08, 2020 Primary Care Physician: A Attending Physician: Christy Morales MD History and Physical CHIEF COMPLAINT: abdominal pain HISTORY OF PRESENT ILLNESS: Patient states that on 03/06/20 he developed worsening abdominal pain, right upper and lower quadrant wrapping around the right flank, sharp in character, intermittent but also constant at times. Movement made pain it worse, nothing made it better. Patient admits to passing gas at home but last bowel movement was 03/06/20 at 2 PM, was nonbloody. Patient states to drink a lot of water at home and work. Associated symptoms include nausea, nonbloody vomiting x4, worsened lethargy, abdominal distention. Denies chest pain, SOB, cough, fevers, chills, sick contacts, headache, lightheadedness or dizziness. Patient presented to [facility] ER, WBC 20K, pain was persistent and surgery evaluated and suggested admission. SBO confirmed on CT abdomen. NG tube was placed and hospitalist admitted him on 03/06/20 for SBO. On 03/07/20, pain and abdominal distention was not improved. Patient continued to have high output from NG tube. WBC later normalized with fluid, NPO status, NG tube placement. Decision was made to transfer to another facility, as there was not improvement and they did not have surgical coverage over the weekend. He was accepted to our facility for transfer and for further management/treatment of SBO. Upon arrival to our facility on 03/08/20, patient was uncomfortable with pain localized mainly in the right upper and lower quadrant, right flank. Pain improved with morphine. VS were stable. Patient had 300 cc of fecal appearing liquid in the bedside container with NG on intermittent suction. Patient was recently admitted 01/04/20-01/08/20 for SBO at [facility], which resolved nonsurgically. Surgery (Dr. Hylton) evaluated patient and decision was made to see watch and see if resolution of SBO occurs on its own, as it had on time prior. Repeat labs showed WBC wnl, no electrolyte abnormalities. Patient denied nausea, fevers, chills. ROS: Negative except for what is mentioned above. PAST MEDICAL HISTORY: 1. SBO (01/04/20) 2. HLD 3. HTN 4. Hx of bronchitis 5. Depression PAST SURGICAL HISTORY: 1. 3 inguinal hernia repairs 2. Cholecystectomy 3. Belly button removal SOCIAL HISTORY: Denies smoking, alcohol use, drug use. Currently employed in the [employer] Lives with his son in the local area. PCP- Dr. Lion Lipscomb. FAMILY HISTORY: Father: CAD, [place]. at 80 y/o Mother: CAD, DM type II, HTN. at 66 y/o ALLERGIES: Please see below. HOME MEDICATIONS: Please see below. VITAL SIGNS: Please see below. PHYSICAL EXAMINATION: CONSTITUTIONAL: Appears uncomfortable, AAO x 3 EYES: PERRLA, EOM intact HENT, MOUTH: Normocephalic, atraumatic, moist mucous membranes, NG tube in place NECK: SUPPLE, no JVD, no lymphadenopathy, no carotid bruit CV: Regular rate and rhythm, S1S2 normal, no murmurs/rubs/gallops RESPIRATORY: Clear to auscultation bilaterally, no rales/rhonchi/wheezes GI: Multiple well healed abdominal scars, distended abdomen, hypoactive BS in 4 quadrants, soft, tender in RUQ and RLQ, no rebound or guarding, no organomegaly : Deferred MUSCULOSKELETAL: Normal ROM. No cyanosis, clubbing, swelling, joint deformity, extremity edema INTEGUMENTARY: Intact, no rashes, no lesions, no erythema NEUROLOGIC: Cranial Nerves II-XII are intact, no focal deficits PSYCHIATRIC: Mood and affect are normal LABORATORY DATA: Please see below IMAGING: CXR sent from transfer facility: NAD CT abd/pelvis from transfer facility: Acute small bowel obstruction, no acute strangulation Transfer facility scans/documents are currently being uploaded to system so these results above were from provider notes, not official reports. Will follow up once uploaded to system. Surgery reviewed scans upon arrival to our facility ASSESSMENT: Patient is a 64 y/o M admitted under inpatient status for treatment/management of recurrent small bowel obstruction. PLAN: 1. Small bowel obstruction, recurrent. At this time will see if patient's SBO resolves with conservative treatment, as last did. C/w NG tube to intermittent suction, IVFs at 100 cc/hr, pain control with morphine IV per pain scale, Zofran PRN, NPO, surgery consulted. 2. HTN. Stable. 3. HLD. Holding statin. 4. Depression. Denies HI/SI. Holding duloxetine. 5. Transaminitis, unclear etiology. F/u daily CMP 6. DVT px. Enoxaparin SC daily. DISPOSITION: Currently admitted under inpatient status. Plan is discharge home when medically improved. Vital Signs Vital Signs Date Time Temp Pulse Resp B/P (MAP) Pulse Ox O2 Delivery O2 Flow Rate FiO2 03/08/20 14:20 18 Laboratory Data Labs 24H Laboratory Tests 2 03/08/20 14:02: Immature Granulocyte % (Auto) 0.2, Neutrophils (%) (Auto) 75.5H, Lymphocytes (%) (Auto) 8.6L, Monocytes (%) (Auto) 14.1H, Eosinophils (%) (Auto) 1.2, Basophils (%) (Auto) 0.4, Neutrophils # (Auto) 7.2, Lymphocytes # (Auto) 0.8L, Monocytes # (Auto) 1.3H, Eosinophils # (Auto) 0.1, Basophils # (Auto) 0.0, Nucleated Red Blood Cells % (auto) 0.0 CBC/BMP Laboratory Tests 03/08/20 14:02 Home Medications Scheduled Acetaminophen (Tylenol 8 Hour) 650 Mg Tablet.er, 650 MG PO DAILY Aspirin (Aspirin EC) 81 Mg Tablet.dr, 81 MG PO DAILY Atorvastatin Calcium (Atorvastatin Calcium) 80 Mg Tablet, 80 MG PO DAILY Fluoxetine Hcl (Fluoxetine HCl) 40 Mg Capsule, 40 MG PO DAILY Losartan Potassium (Losartan Potassium) 25 Mg Tablet, 25 MG PO DAILY Multivitamin/Iron/Folic Acid (Centrum Adults Tablet) 1 Each Tablet, 1 TAB PO DAILY Allergies Coded Allergies: Penicillins (Verified Allergy, Severe, RESP DEPRESSION/SOB, 01/04/20) latex (Verified Allergy, Unknown, 03/08/20) A-FIB/CHADSVASC A-FIB History Current/History of A-Fib/PAF?: No Current PO Anticoag Therapy: No Age/Risk Factor Scoring CHADSVASC: CHADSVASC Response (Comments) Value Age Risk Factor Age < 65 years old 0 Gender Risk Factor Male 0 Hx of CHF No 0 Hx of HTN Yes 1 Hx of Stroke/TIA/or VTE No 0 Hx of Diabetes No 0 Hx of Vascular Disease No 0 Total 1 Treatment Other anticoagulant ordered: enoxaparin Christy Morales MD March 08, 2020 14:43
[2020-03-08 14:44] LABS: ALBUMIN 3.5 GM/DL (3.2-5.2); ALT/SGPT 99 U/L (12-78); BILIRUBIN,TOTAL 0.9 MG/DL (0.2-1.0); BLOOD UREA NITROGEN 25 MG/DL (7-18); CALCIUM LEVEL 8.8 MG/DL (8.8-10.2); CARBON DIOXIDE LEVEL 29 MEQ/L (21-32); CHLORIDE LEVEL 104 MEQ/L (98-107); CREATININE FOR GFR 0.91 MG/DL (0.70-1.30); GLOMERULAR FILTRATION RATE > 60.0 (>49); GLUCOSE, FASTING 114 MG/DL (70-100); POTASSIUM SERUM 3.9 MEQ/L (3.5-5.1); SODIUM LEVEL 139 MEQ/L (136-145); TOTAL PROTEIN 6.6 GM/DL (6.4-8.2)
--- NOTE | 2020-03-08 23:34 | CR ---
DATE OF CONSULTATION: 03/08/2020 BRIEF HISTORY OF PRESENT ILLNESS: The patient is a 64-year-old male who presented to [facility] with small bowel obstruction. He has had a small bowel obstruction earlier this year that resolved with nasogastric (NG) tube decompression without operative intervention. He has had a previous umbilical hernia repair with mesh in the remote past. No bowel resection was required reportedly. He states that today he did have some flatus and bowel movements after his transfer here to [facility]. He states that his abdominal distension is less than it was yesterday but still significantly distended and has crampy abdominal pain. He has had no fevers, no chills. Presented to the emergency room at [place] with a white count of 20,000 and today his white count is 9.5 here on admission. His past medical history is significant for a history of small bowel obstruction, history of inguinal hernia repairs, umbilical hernia repair, cholecystectomy, hyperlipidemia, hypertension, bronchitis, depression. PHYSICAL EXAM: Reveals a 64-year-old male who looks stated age. HEENT is unremarkable. Neck: Supple without adenopathy. Lungs are clear anteriorly. Heart is regular. Abdomen is distended, tympanitic without guarding, rebound or peritoneal signs, but he definitely has some discomfort with palpation. His CT scan indeed shows evidence of small bowel obstruction with transition in the right lateral abdomen. IMPRESSION AND PLAN: The patient has evidence of a small bowel obstruction. No evidence of emergent need for operative intervention today. I do feel that given he has flatus and his NG tube is still putting out fluids, he probably has a high-grade partial. Fortunately he has resolved this in the past with NG tube decompression, and I do feel that that is a reasonable option for him at this time. However, since this is a recurrence, we will discuss with him after he resolves and/if he resolves, whether to perform a diagnostic laparoscopy with possible laparoscopic lysis of adhesions. However, obviously if he does not have progression of improvement/resolution of his symptoms, proceeding with operative intervention may be necessary. Dr. Kahn will be here over the weekend for coverage. I anticipate given his previous history and his slow resolution of bowel obstruction last time, that it may be a few days before this completely resolves. Will see how he is doing over the next 12-24 hours with his NG tube for decompression and will get some follow-up x-rays in the morning.
[2020-03-09 00:51] VITALS: BP 128/79
[2020-03-09] MEDS: MORPHINE 2 MG/ML 1ML VIAL (J2270) IV PRN ×2 (04:03→21:39)
[2020-03-09] MEDS: NS 1,000 ML IV SCH ×3 (04:03→21:40)
[2020-03-09 05:40] VITALS: BP 109/62
[2020-03-09 06:23] LABS: HEMOGLOBIN 14.4 g/dl (13.5-17.5); MEAN CORPUSCULAR HEMOGLOBIN 30.6 pg (27.0-33.0); MEAN CORPUSCULAR HGB CONC 33.5 g/dl (32.0-36.5); MEAN CORPUSCULAR VOLUME 91.5 fl (80.0-96.0); PLATELET COUNT, AUTOMATED 272 10^3/uL (150-450); WHITE BLOOD COUNT 5.6 10^3/uL (4.0-10.0)
[2020-03-09 06:43] LABS: ALBUMIN 2.8 GM/DL (3.2-5.2); ALT/SGPT 90 U/L (12-78); BILIRUBIN,TOTAL 0.8 MG/DL (0.2-1.0); BLOOD UREA NITROGEN 18 MG/DL (7-18); CALCIUM LEVEL 8.1 MG/DL (8.8-10.2); CARBON DIOXIDE LEVEL 26 MEQ/L (21-32); CHLORIDE LEVEL 109 MEQ/L (98-107); CREATININE FOR GFR 0.73 MG/DL (0.70-1.30); GLOMERULAR FILTRATION RATE > 60.0 (>49); GLUCOSE, FASTING 96 MG/DL (70-100); POTASSIUM SERUM 3.8 MEQ/L (3.5-5.1); SODIUM LEVEL 141 MEQ/L (136-145); TOTAL PROTEIN 5.6 GM/DL (6.4-8.2)
[2020-03-09] MEDS: ENOXAPARIN 40MG/0.4ML SYRINGE (J1650 PER 10MG) SC SCH (09:11)
--- NOTE | 2020-03-09 09:19 | IPN ---
DATE: 03/09/2020 The patient states he had a large bowel movement this morning and he is feeling less distended with less crampy abdominal pain. No nausea or vomiting. His nasogastric (NG) tube has not been putting all that much out and follow-up x-rays reveal that the contrast he had for his CT has moved into his colon. Still has some dilated small bowel, however, his NG tube is just inside the stomach. On his physical exam, the lungs are clear anteriorly. Heart is regular. Abdomen is still distended, still tympanitic, but definitely less than yesterday and without guarding, rebound or peritoneal signs. IMPRESSION AND PLAN: The patient has evidence of a partial obstruction and he seems to have some progression of his obstruction/resolution of this. I do feel that his NG tube needs to stay in and it may be reasonable to advance it just 5 cm and this might help suction his stomach a little bit better. Right now I am not seeing a significant air bubble within the stomach, so this may be adequately decompressed at this time. From the standpoint of resolution of this, I anticipate given his progress/decreased distention of the bowel and progression of fluid through his colon, he probably will continue to resolve over the ensuing 24-48 hours. There is a question obviously whether he needs to undergo a diagnostic laparoscopy with lysis of adhesions, possibly proceeding with this as an outpatient may be reasonable option for him once he has returned to normal or other options obviously include attempting this prior to discharge or to discharge him to home with follow up on an as-needed basis. All are reasonable, however, with his previous recent hospitalization and recurrence of the small -bowel obstruction, I have concerns that he might recur in the next several months as well. The patient understands our plan at this time. Dr. Kahn will be covering this weekend and I have the discussed his case with him.
--- NOTE | 2020-03-09 09:39 | REP ---
ABDOMEN SERIES: Three views. HISTORY: Small bowel obstruction. Comparison KUB January 06, 2020. Comparison CT study March 07, 2020. FINDINGS: There is moderate persistent small bowel dilation pattern in the central abdomen with air-fluid levels on the upright film. There is some orally administered CT contrast in the descending colon extending to the rectum indicating some antegrade progress and lack of complete obstruction. There is a surgical clip in the right upper quadrant. A nasogastric tube enters the gastric fundus. The stomach is decompressed. There is no evidence of free subdiaphragmatic air. There is discoid atelectasis in the left base on the upright chest radiograph. IMPRESSION: Improved small bowel obstruction pattern. Persistent moderate small bowel loop distension and air-fluid levels. Electronically Signed by Rakesh Guerra MD 03/09/2020 12:45 P
[2020-03-09 14:00] VITALS: BP 145/86
[2020-03-09] MEDS: ATORVASTATIN 20 MG TAB PO SCH (14:28)
[2020-03-09] MEDS: FLUoxetine 20 MG CAP PO SCH (14:28)
[2020-03-09] MEDS: LOSARTAN 25 MG TAB PO SCH (14:29)
--- NOTE | 2020-03-09 18:00 | IPNPDOC ---
Date Seen The patient was seen on 03/09/20. Progress Note SUBJECTIVE: Patient had large BM this AM. Repeat abd XR showed improvement of SBO pattern. As per surgery, c/w NG tube and hope to see improvement over next 24-48 hrs. At this time, surgery is not ruled out or planned for. Dr. Kahn covering surgery service this weekend and will follow up with him tomorrow. Patient denies chest pain, shortness of breath, fevers. OBJECTIVE: VITAL SIGNS: Please see below PHYSICAL EXAMINATION: CONSTITUTIONAL: Appears uncomfortable, AAO x 3 EYES: PERRLA, EOM intact HENT, MOUTH: Normocephalic, atraumatic, moist mucous membranes, NG tube in place NECK: SUPPLE, no JVD, no lymphadenopathy, no carotid bruit CV: Regular rate and rhythm, S1S2 normal, no murmurs/rubs/gallops RESPIRATORY: Clear to auscultation bilaterally, no rales/rhonchi/wheezes GI: Multiple well healed abdominal scars, distended abdomen, BS in 4 quadrants, soft, tender in RUQ and RLQ, no rebound or guarding, no organomegaly : Deferred MUSCULOSKELETAL: Normal ROM. No cyanosis, clubbing, swelling, joint deformity, extremity edema INTEGUMENTARY: Intact, no rashes, no lesions, no erythema NEUROLOGIC: Cranial Nerves II-XII are intact, no focal deficits PSYCHIATRIC: Mood and affect are normal LABORATORY DATA: Please see below CURRENT MEDICATIONS: See below IMAGING: Repeat Abd XR: Improved small bowel obstruction pattern. Persistent moderate small bowel loop distension and air-fluid levels. ASSESSMENT: Patient is a 64 y/o M admitted under inpatient status for treatment/management of recurrent small bowel obstruction. PLAN: 1. Small bowel obstruction, recurrent. Improved Abd XR today, surgery is not planned on or ruled out at this time. C/w conservative treatment: NG tube to intermittent suction, IVFs at 100 cc/hr, pain control with morphine IV per pain scale, Zofran PRN, NPO, surgery following. 2. HTN. Stable. 3. HLD. Holding statin. 4. Depression. Denies HI/SI. Holding duloxetine. 5. Transaminitis, unclear etiology. F/u daily CMP 6. DVT px. Enoxaparin SC daily. DISPOSITION: Currently admitted under inpatient status. Plan is discharge home when medically improved. VS, I&O, 24H, Fishbone Vital Signs/I&O Vital Signs Date Time Temp Pulse Resp B/P (MAP) Pulse Ox O2 Delivery O2 Flow Rate FiO2 03/09/20 14:29 120/70 03/09/20 14:00 98.2 70 18 97 Room Air I&O- Last 24 Hours up to 6 AM 03/09/20 06:00 Intake Total 0 ml Output Total 1350 ml Balance -1350 ml Laboratory Data 24H LABS Laboratory Tests 2 03/09/20 05:57: Nucleated Red Blood Cells % (auto) 0.0, Anion Gap 6L, Glomerular Filtration Rate > 60.0, Calcium Level 8.1L, Total Bilirubin 0.8, Aspartate Amino Transf (AST/SGOT) 46H, Alanine Aminotransferase (ALT/SGPT) 90H, Alkaline Phosphatase 82, Total Protein 5.6L, Albumin 2.8L, Albumin/Globulin Ratio 1.00 CBC/BMP Laboratory Tests 03/09/20 05:57 Current Medications Current Medications Medications (Trade) Dose Ordered Sig/Ki Route PRN Reason Start Time Stop Time Status Last Admin Dose Admin Atorvastatin Calcium (Lipitor) 80 mg DAILY PO 03/09/20 13:00 03/09/20 14:28 Enoxaparin Sodium (Lovenox) 40 mg DAILY SC 03/09/20 09:00 03/09/20 09:11 Fluoxetine HCl (PROzac) 40 mg DAILY PO 03/09/20 13:00 03/09/20 14:28 Heparin Sodium (Porcine) (Heparin) 5,000 units Q8H SQ 03/08/20 14:00 03/08/20 14:59 DC 03/08/20 14:20 Home Med (Med Rec Complete!) ASDIRECTED XX 03/08/20 14:30 03/08/20 14:26 DC Losartan Potassium (Cozaar) 25 mg DAILY PO 03/09/20 13:00 03/09/20 14:29 Morphine Sulfate (Morphine Sulfate Inj) 1 mg Q4HP PRN IV MODERATE PAIN (PS 5-7) 03/08/20 14:00 03/08/20 21:41 Morphine Sulfate (Morphine Sulfate Inj) 2 mg Q8HP PRN IV SEVERE PAIN (PS 8-10) 03/08/20 14:00 03/09/20 04:03 Ondansetron HCl (ZOFRAN INJection) 4 mg Q6HP PRN IV NAUSEA OR VOMITING 03/08/20 15:15 Sodium Chloride 1,000 ml @ 125 mls/hr Q8H IV 03/08/20 13:30 03/09/20 14:30 Allergies Coded Allergies: Penicillins (Verified Allergy, Severe, RESP DEPRESSION/SOB, 01/04/20) latex (Verified Allergy, Unknown, 03/08/20) Christy Morales MD March 09, 2020 18:00
[2020-03-09] MEDS: ONDANSETRON 4MG/2ML VIAL IV PRN (19:12)
[2020-03-09 22:00] VITALS: BP 146/84
[2020-03-10] VITALS (9 sets, daily range): BP systolic 148–170; BP diastolic 74–85
[2020-03-10] MEDS: NS 1,000 ML IV SCH (05:58)
[2020-03-10 06:35] LABS: HEMATOCRIT 43.8 % (42.0-52.0); HEMOGLOBIN 15.5 g/dl (13.5-17.5); MEAN CORPUSCULAR HEMOGLOBIN 31.9 pg (27.0-33.0); MEAN CORPUSCULAR HGB CONC 35.4 g/dl (32.0-36.5); MEAN CORPUSCULAR VOLUME 90.1 fl (80.0-96.0); PLATELET COUNT, AUTOMATED 296 10^3/uL (150-450); RED BLOOD COUNT 4.86 10^6/uL (4.30-6.10); WHITE BLOOD COUNT 7.1 10^3/uL (4.0-10.0)
[2020-03-10 07:02] LABS: ALBUMIN 2.9 GM/DL (3.2-5.2); ALT/SGPT 65 U/L (12-78); BILIRUBIN,TOTAL 0.7 MG/DL (0.2-1.0); BLOOD UREA NITROGEN 15 MG/DL (7-18); CALCIUM LEVEL 8.6 MG/DL (8.8-10.2); CARBON DIOXIDE LEVEL 28 MEQ/L (21-32); CHLORIDE LEVEL 106 MEQ/L (98-107); CREATININE FOR GFR 0.72 MG/DL (0.70-1.30); GLOMERULAR FILTRATION RATE > 60.0 (>49); GLUCOSE, FASTING 78 MG/DL (70-100); POTASSIUM SERUM 3.7 MEQ/L (3.5-5.1); SODIUM LEVEL 142 MEQ/L (136-145); TOTAL PROTEIN 5.8 GM/DL (6.4-8.2)
[2020-03-10] MEDS: ATORVASTATIN 20 MG TAB PO SCH (08:20)
[2020-03-10] MEDS: ENOXAPARIN 40MG/0.4ML SYRINGE (J1650 PER 10MG) SC SCH (08:20)
[2020-03-10] MEDS: FLUoxetine 20 MG CAP PO SCH (08:20)
[2020-03-10] MEDS: LOSARTAN 25 MG TAB PO SCH (08:21)
--- NOTE | 2020-03-10 09:15 | IPNPDOC ---
Text Note Date of Service The patient was seen on 03/10/20. NOTE Patient reports still fell "sore" over prior umbilical hernia repair site. Den ies nausea. Passing some flatus and has had a couple of bowel movements although abdomen still looks somewhat distended VS stable afebrile, nontachycardic I/O NGT 50 mL yday 2 BMs soft (last one at 6 pm last night) On exam looks comfortable lung sounds clear regular heart rate and rhythm abdomen still distended, tympanitic to percussion, prior incision from umbilical hernia repair noted, no hernia appreciated on valsalva. Mildly tender over periumbilical and RLQ area, no rebound no significant extremity edema Recurrent small bowel obstruction Seems to be clinically improving, though I do not think he has fully resolved yet at this point. I will take another xray today. I spoke to him about the possibility of performing lysis of adhesions preferrably laparoscopic if bowel obstruction not fully resolved. Keep NGT Keep IVFs VS,Fishbone, I+O VS, Fishbone, I+O Laboratory Tests 03/10/20 06:21 Vital Signs Date Time Temp Pulse Resp B/P (MAP) Pulse Ox O2 Delivery O2 Flow Rate FiO2 03/10/20 08:21 148/83 03/10/20 06:00 98.4 70 18 95 Room Air I&O- Last 24 Hours up to 6 AM 03/10/20 05:59 Intake Total 1560 ml Output Total 1045 ml Balance 515 ml DUC GUTIÉRREZ MD March 10, 2020 08:50
[2020-03-10] MEDS: ONDANSETRON 4MG/2ML VIAL IV PRN (10:11)
[2020-03-10] MEDS ORDERED: LevoFLOXacin IV 500 MG in IV 1 EA IV ONE (11:00)
[2020-03-10] MEDS ORDERED: ROCURONIUM BROMIDE 50 MG/5 ML VIAL As Ordered ONE ×2 (11:20→13:07)
[2020-03-10] MEDS ORDERED: LIDOCAINE 2% 100MG/5ML SDV (FOR ANES.) As Ordered ONE (11:20)
[2020-03-10] MEDS ORDERED: propofoL 200 MG/20 ML VIAL As Ordered ONE (11:20)
[2020-03-10] MEDS ORDERED: MIDAZOLAM INJ 2MG/2ML VIAL (J2250 PER 1MG) As Ordered ONE (11:20)
[2020-03-10] MEDS ORDERED: fentaNYL 250 MCG/5 ML INJECTION (J3010) As Ordered ONE (11:20)
--- NOTE | 2020-03-10 11:33 | REP ---
REASON: Followup. COMPARISON: 03/09/2020 at 8:39 a.m. Once again, there are fluid and gas-filled dilated small bowel loops in the abdomen with air-fluid levels seen on the upright view, status quo. There has been little change compared to the prior exam. The accompanying frontal view of the chest is unchanged. There is no evidence of free subdiaphragmatic air. IMPRESSION: No significant change. Electronically Signed by Flaco Laguna DO 03/10/2020 12:58 P
[2020-03-10] MEDS ORDERED: LIDOCAINE 1% SDV 30ML VIAL As Ordered ONE (11:46)
[2020-03-10] MEDS ORDERED: BUPIVACAINE HCL 0.25% 30ML VIAL As Ordered ONE (11:46)
[2020-03-10] MEDS ORDERED: LevoFLOXacin 500MG/100ML IV BAG (J1956 PER 250MG) As Ordered ONE (11:46)
[2020-03-10] MEDS ORDERED: SUCCINYLCHOLINE 100 MG/5 ML SYRINGE (J0330) As Ordered ONE (12:08)
[2020-03-10] MEDS ORDERED: dexameTHASONE 4 MG/ML 1ML VIAL (J1100 PER 1MG) As Ordered ONE (13:01)
[2020-03-10] MEDS ORDERED: ONDANSETRON 4MG/2ML VIAL As Ordered ONE (13:02)
[2020-03-10] MEDS ORDERED: METOCLOPRAMIDE INJ 10MG/2ML VIAL (J2765 PER 1) As Ordered ONE (13:02)
[2020-03-10] MEDS ORDERED: SUGAMMADEX SODIUM 500 MG/5 ML VIAL (BRIDION) As Ordered ONE (13:02)
[2020-03-10] MEDS ORDERED: ACETAMINOPHEN 1000MG 100ML IV BTL (OFIRMEV) (J0131 PER 10MG) As Ordered ONE (13:02)
[2020-03-10] MEDS ORDERED: HYDROmorphone HCL 2 MG/ML 1ML VIAL (J1170) As Ordered ONE (13:02)
[2020-03-10] MEDS ORDERED: KETOROLAC 60 MG/2 ML VIAL As Ordered ONE (13:02)
--- NOTE | 2020-03-10 14:47 | POST-OPPD ---
Postoperative Procedure Note Date Of Procedure: March 10, 2020 PREOPERATIVE DIAGNOSIS: small bowel obstruction POSTOPERATIVE DIAGNOSIS: small bowel obstruction, tiny parietal hernias x 3 FINDINGS: a long loop of bowel adhered to the mesh on the anterior abdominal wall, multiple bowel loop adhesions, 2 subcentimeter parietal hernias that went through the mesh and 1 port site hernia at the epigastric area (1 cm) PROCEDURE: Robotic assisted laparoscopic lysis of adhesion, primary repair of 3 tiny (subcentimeter parietal incisional hernias) SURGEON: Nino Kahn MD REGISTERED NURSE FIRST ASSISTANT: ANESTHESIA: General Anesthesia SPECIMENS: none ESTIMATED BLOOD LOSS: 20 mL URINE OUTPUT: 100 ML DRAINS: NONE COMPLICATIONS: NONE POSTOPERATIVE CONDITION: STABLE, EXTUBATED TO PACU NINO KAHN MD March 10, 2020 14:47
[2020-03-10] MEDS ORDERED: ONDANSETRON 4MG/2ML VIAL IV PRN (15:15)
[2020-03-10] MEDS ORDERED: fentaNYL 100 MCG/2 ML INJECTION (J3010) IV PRN (15:15)
[2020-03-10] MEDS ORDERED: METOCLOPRAMIDE INJ 10MG/2ML VIAL (J2765 PER 1) IV PRN (15:15)
[2020-03-10] MEDS ORDERED: LR 1,000 ML IV SCH (15:15)
--- NOTE | 2020-03-10 17:46 | IPNPDOC ---
Date Seen The patient was seen on 03/10/20. Progress Note SUBJECTIVE: 2 BM's 03/09/20, NG tube 30 mL since AM. Repeat Abd XR today did not show much change from one on 03/09/20. Although clinically improving some, still has pain over periumbilical area, hernia area. Surgery today. Patient denies chest pain, shortness of breath, fevers. OBJECTIVE: VITAL SIGNS: Please see below PHYSICAL EXAMINATION: CONSTITUTIONAL: Appears comfortable, AAO x 3 EYES: PERRLA, EOM intact HENT, MOUTH: Normocephalic, atraumatic, moist mucous membranes, NG tube in place NECK: SUPPLE, no JVD, no lymphadenopathy, no carotid bruit CV: Regular rate and rhythm, S1S2 normal, no murmurs/rubs/gallops RESPIRATORY: Clear to auscultation bilaterally, no rales/rhonchi/wheezes GI: Multiple well healed abdominal scars, distended abdomen, tympanic to percussion, BS in 4 quadrants, soft, tender in periumbilical area, no rebound or guarding, no organomegaly : Deferred MUSCULOSKELETAL: Normal ROM. No cyanosis, clubbing, swelling, joint deformity, extremity edema INTEGUMENTARY: Intact, no rashes, no lesions, no erythema NEUROLOGIC: Cranial Nerves II-XII are intact, no focal deficits PSYCHIATRIC: Mood and affect are normal LABORATORY DATA: Please see below CURRENT MEDICATIONS: See below IMAGING: Abd XR: Once again, there are fluid and gas-filled dilated small bowel loops in the abdomen with air-fluid levels seen on the upright view, status quo. There has been little change compared to the prior exam. The accompanying frontal view of the chest is unchanged. There is no evidence of free subdiaphragmatic air. IMPRESSION: No significant change. ASSESSMENT: Patient is a 64 y/o M admitted under inpatient status for treatment/management of recurrent small bowel obstruction. PLAN: 1. Small bowel obstruction, recurrent. Improved Abd XR today, but clinically still in pain. Surgery today for lysis of adhesions. F/u Dr. Kahn post- surgery. 2. HTN. Stable. 3. HLD. Holding statin. 4. Depression. Denies HI/SI. Holding duloxetine. 5. Transaminitis, unclear etiology. Resolved. 6. DVT px. SCDs, resume AC after surgery. DISPOSITION: Currently admitted under inpatient status. Surgery today. Plan is discharge home when medically improved. VS, I&O, 24H, Fishbone Vital Signs/I&O Vital Signs Date Time Temp Pulse Resp B/P (MAP) Pulse Ox O2 Delivery O2 Flow Rate FiO2 03/10/20 16:15 97.4 74 18 161/77 (105) 97 Room Air 03/10/20 15:44 2.0 I&O- Last 24 Hours up to 6 AM 03/10/20 06:00 Intake Total 1660 ml Output Total 2320 ml Balance -660 ml Laboratory Data 24H LABS Laboratory Tests 2 03/10/20 06:21: Nucleated Red Blood Cells % (auto) 0.0, Anion Gap 8, Glomerular Filtration Rate > 60.0, Calcium Level 8.6L, Total Bilirubin 0.7, Aspartate Amino Transf (AST/SGOT) 28, Alanine Aminotransferase (ALT/SGPT) 65, Alkaline Phosphatase 82, Total Protein 5.8L, Albumin 2.9L, Albumin/Globulin Ratio 1.00 CBC/BMP Laboratory Tests 03/10/20 06:21 Current Medications Current Medications Medications (Trade) Dose Ordered Sig/Ki Route PRN Reason Start Time Stop Time Status Last Admin Dose Admin Alvimopan (Entereg) 12 mg BID PO 03/10/20 21:00 03/17/20 20:59 Atorvastatin Calcium (Lipitor) 80 mg DAILY PO 03/09/20 13:00 03/10/20 08:20 Enoxaparin Sodium (Lovenox) 40 mg DAILY SC 03/09/20 09:00 03/10/20 08:20 Fentanyl Citrate (Sublimaze) 25 mcg Q5MP PRN IV PAIN LEVEL 5-10 03/10/20 15:15 03/10/20 16:15 DC Fluoxetine HCl (PROzac) 40 mg DAILY PO 03/09/20 13:00 03/10/20 08:20 Heparin Sodium (Porcine) (Heparin) 5,000 units Q8H SQ 03/08/20 14:00 03/08/20 14:59 DC 03/08/20 14:20 Home Med (Med Rec Complete!) ASDIRECTED XX 03/08/20 14:30 03/08/20 14:26 DC Ketorolac Tromethamine (ToRADol) 15 mg Q6H PRN IV PAIN 03/10/20 15:15 03/15/20 15:14 Lactated Ringer's 1,000 ml @ 100 mls/hr Q10H IV 03/10/20 15:15 03/10/20 16:15 DC Losartan Potassium (Cozaar) 25 mg DAILY PO 03/09/20 13:00 03/10/20 08:21 Metoclopramide HCl (REGLAN INJection) 10 mg Q6HP PRN IV NAUSEA OR VOMITING 03/10/20 15:15 03/10/20 16:15 DC Morphine Sulfate (Morphine Sulfate Inj) 1 mg Q4HP PRN IV MODERATE PAIN (PS 5-7) 03/08/20 14:00 03/08/20 21:41 Morphine Sulfate (Morphine Sulfate Inj) 2 mg Q8HP PRN IV SEVERE PAIN (PS 8-10) 03/08/20 14:00 03/09/20 21:39 Ondansetron HCl (ZOFRAN INJection) 4 mg Q4HP PRN IV NAUSEA OR VOMITING 03/10/20 15:15 03/10/20 16:15 DC Ondansetron HCl (ZOFRAN INJection) 4 mg Q6HP PRN IV NAUSEA OR VOMITING 03/08/20 15:15 03/10/20 10:11 Sodium Chloride 1,000 ml @ 100 mls/hr Q10H IV 03/08/20 13:30 03/10/20 15:12 DC 03/10/20 05:58 Allergies Coded Allergies: Penicillins (Verified Allergy, Severe, RESP DEPRESSION/SOB, 01/04/20) latex (Verified Allergy, Unknown, 03/08/20) Christy Morales MD March 10, 2020 17:46
[2020-03-10] MEDS: ALVIMOPAN 12 MG CAPSULE (ENTEREG) PO SCH (20:49)
[2020-03-11] MEDS: KETOROLAC 30 MG/ML 1ML VIAL IV PRN ×2 (00:16→22:11)
[2020-03-11 06:00] VITALS: BP 152/80
[2020-03-11 07:04] LABS: HEMATOCRIT 43.5 % (42.0-52.0); HEMOGLOBIN 15.1 g/dl (13.5-17.5); MEAN CORPUSCULAR HEMOGLOBIN 30.4 pg (27.0-33.0); MEAN CORPUSCULAR HGB CONC 34.7 g/dl (32.0-36.5); MEAN CORPUSCULAR VOLUME 87.5 fl (80.0-96.0); PLATELET COUNT, AUTOMATED 329 10^3/uL (150-450); RED BLOOD COUNT 4.97 10^6/uL (4.30-6.10); WHITE BLOOD COUNT 8.5 10^3/uL (4.0-10.0)
[2020-03-11 07:36] LABS: ALBUMIN 3.1 GM/DL (3.2-5.2); ALT/SGPT 49 U/L (12-78); BILIRUBIN,TOTAL 0.5 MG/DL (0.2-1.0); BLOOD UREA NITROGEN 19 MG/DL (7-18); CALCIUM LEVEL 8.8 MG/DL (8.8-10.2); CARBON DIOXIDE LEVEL 30 MEQ/L (21-32); CHLORIDE LEVEL 103 MEQ/L (98-107); CREATININE FOR GFR 0.84 MG/DL (0.70-1.30); GLOMERULAR FILTRATION RATE > 60.0 (>49); GLUCOSE, FASTING 92 MG/DL (70-100); POTASSIUM SERUM 3.6 MEQ/L (3.5-5.1); SODIUM LEVEL 141 MEQ/L (136-145)
[2020-03-11 10:00] VITALS: BP_SYST 158; BP_SYST 177; BP_DIAS 80; BP_DIAS 82
[2020-03-11] MEDS: ENOXAPARIN 40MG/0.4ML SYRINGE (J1650 PER 10MG) SC SCH (10:09)
[2020-03-11] MEDS: FLUoxetine 20 MG CAP PO SCH (10:09)
[2020-03-11] MEDS: ALVIMOPAN 12 MG CAPSULE (ENTEREG) PO SCH ×2 (10:09→21:14)
[2020-03-11] MEDS: ATORVASTATIN 20 MG TAB PO SCH (10:10)
[2020-03-11] MEDS: LOSARTAN 25 MG TAB PO SCH (10:11)
--- NOTE | 2020-03-11 10:23 | IPNPDOC ---
Text Note Date of Service The patient was seen on 03/11/20. NOTE Patient reports feeling better, no nausea, mild abdominal discomfort. Not spo ntaneously passing flatus yet. He still had a good amount of NG output postop. VS nontachycardic, afebrile I/O 950 NG output postop On exam, looks more comfortable than yesterday lungs clear abdomen, slight prominent, looks less distended than yesterday. minimal discomfort at the port sites, mild tenderness at the rlq abdominal wall Impression: POD1 RA lap lysis of adhesion, release of SBO I advised him to ambulate to hallways today. will clamp ng tube to see if he is able to tolerate removal and if he does, ok for clears VS,Fishbone, I+O VS, Fishbone, I+O Laboratory Tests 03/11/20 06:44 Vital Signs Date Time Temp Pulse Resp B/P (MAP) Pulse Ox O2 Delivery O2 Flow Rate FiO2 03/11/20 10:11 152/80 03/11/20 06:00 98.2 64 96 96 Room Air 03/10/20 20:15 2.0 I&O- Last 24 Hours up to 6 AM 03/11/20 06:00 Intake Total 4200 ml Output Total 1595 ml Balance 2605 ml DUC GUTIÉRREZ MD March 11, 2020 10:23
[2020-03-11] MEDS: MORPHINE 2 MG/ML 1ML VIAL (J2270) IV PRN (13:47)
[2020-03-11 14:00] VITALS: BP_SYST 158; BP_SYST 175; BP_DIAS 88
--- NOTE | 2020-03-11 15:37 | IPNPDOC ---
Date Seen The patient was seen on 03/11/20. Progress Note SUBJECTIVE: Post op Day 1 lysis of adhesions, repair of 3 small hernias. 900 mL out of NG tube postoperatively. Pain controlled, NG tube in place but to gravity. Encouraged to ambulate today. Patient denies chest pain, shortness of breath, fevers. OBJECTIVE: VITAL SIGNS: Please see below PHYSICAL EXAMINATION: CONSTITUTIONAL: Appears comfortable, AAO x 3 EYES: PERRLA, EOM intact HENT, MOUTH: Normocephalic, atraumatic, moist mucous membranes, NG tube to gravity NECK: SUPPLE, no JVD, no lymphadenopathy, no carotid bruit CV: Regular rate and rhythm, S1S2 normal, no murmurs/rubs/gallops RESPIRATORY: Clear to auscultation bilaterally, no rales/rhonchi/wheezes GI: less distended abdomen, BS in 4 quadrants, soft, mildly tender in periumbilical area, no rebound or guarding, no organomegaly : Deferred MUSCULOSKELETAL: Normal ROM. No cyanosis, clubbing, swelling, joint deformity, extremity edema INTEGUMENTARY: 4 new but clean operative incisions on abdomen, multiple well healed abdominal scars. Skin intact, no rashes, no lesions, no erythema NEUROLOGIC: Cranial Nerves II-XII are intact, no focal deficits PSYCHIATRIC: Mood and affect are normal LABORATORY DATA: Please see below CURRENT MEDICATIONS: See below IMAGING: No new imaging. ASSESSMENT: Patient is a 64 y/o M recurrent small bowel obstruction post-op day 1 for s/p lysis of adhesions, repair of 3 small hernias. PLAN: 1. Recurrent small bowel obstruction post-op day 1 for s/p lysis of adhesions, repair of 3 small hernias. NG tube to gravity, encourage ambulation, c/w IVFs, pain control. Possibly advance to clears in next 24 hours if does well. F/u Dr. Kahn - surgery. 2. HTN. Elevated to 170's systolic. Monitor closely because cannot give PO and cannot give IV hydralazine on this floor. If IV needed, will need to transfer to different floor. 3. HLD. Holding statin. 4. Depression. Denies HI/SI. Holding duloxetine. 5. Transaminitis, unclear etiology. Resolved. 6. DVT px. SCDs, enoxaparin DISPOSITION: Currently admitted under inpatient status. Plan is discharge home when medically improved. VS, I&O, 24H, Fishbone Vital Signs/I&O Vital Signs Date Time Temp Pulse Resp B/P (MAP) Pulse Ox O2 Delivery O2 Flow Rate FiO2 03/11/20 14:00 158/88 (111) 03/11/20 14:00 98.2 72 18 95 Room Air 03/10/20 20:15 2.0 I&O- Last 24 Hours up to 6 AM 03/11/20 05:59 Intake Total 4300 ml Output Total 2045 ml Balance 2255 ml Laboratory Data 24H LABS Laboratory Tests 2 03/11/20 06:44: Nucleated Red Blood Cells % (auto) 0.0, Anion Gap 8, Glomerular Filtration Rate > 60.0, Calcium Level 8.8, Total Bilirubin 0.5, Aspartate Amino Transf (AST/SGOT) 24, Alanine Aminotransferase (ALT/SGPT) 49, Alkaline Phosphatase 84, Total Protein 6.0L, Albumin 3.1L, Albumin/Globulin Ratio 1.07 CBC/BMP Laboratory Tests 03/11/20 06:44 Current Medications Current Medications Medications (Trade) Dose Ordered Sig/Ki Route PRN Reason Start Time Stop Time Status Last Admin Dose Admin Alvimopan (Entereg) 12 mg BID PO 03/10/20 21:00 03/17/20 20:59 03/11/20 10:09 Atorvastatin Calcium (Lipitor) 80 mg DAILY PO 03/09/20 13:00 03/11/20 10:10 Enoxaparin Sodium (Lovenox) 40 mg DAILY SC 03/09/20 09:00 03/11/20 10:09 Fentanyl Citrate (Sublimaze) 25 mcg Q5MP PRN IV PAIN LEVEL 5-10 03/10/20 15:15 03/10/20 16:15 DC Fluoxetine HCl (PROzac) 40 mg DAILY PO 03/09/20 13:00 03/11/20 10:09 Heparin Sodium (Porcine) (Heparin) 5,000 units Q8H SQ 03/08/20 14:00 03/08/20 14:59 DC 03/08/20 14:20 Home Med (Med Rec Complete!) ASDIRECTED XX 03/08/20 14:30 03/08/20 14:26 DC Ketorolac Tromethamine (ToRADol) 15 mg Q6H PRN IV PAIN 03/10/20 15:15 03/15/20 15:14 03/11/20 00:16 Lactated Ringer's 1,000 ml @ 100 mls/hr Q10H IV 03/10/20 15:15 03/10/20 16:15 DC Losartan Potassium (Cozaar) 25 mg DAILY PO 03/09/20 13:00 03/11/20 10:11 Metoclopramide HCl (REGLAN INJection) 10 mg Q6HP PRN IV NAUSEA OR VOMITING 03/10/20 15:15 03/10/20 16:15 DC Morphine Sulfate (Morphine Sulfate Inj) 1 mg Q4HP PRN IV MODERATE PAIN (PS 5-7) 03/08/20 14:00 03/08/20 21:41 Morphine Sulfate (Morphine Sulfate Inj) 2 mg Q8HP PRN IV SEVERE PAIN (PS 8-10) 03/08/20 14:00 03/11/20 13:47 Ondansetron HCl (ZOFRAN INJection) 4 mg Q4HP PRN IV NAUSEA OR VOMITING 03/10/20 15:15 03/10/20 16:15 DC Ondansetron HCl (ZOFRAN INJection) 4 mg Q6HP PRN IV NAUSEA OR VOMITING 03/08/20 15:15 03/10/20 10:11 Sodium Chloride 1,000 ml @ 100 mls/hr Q10H IV 03/08/20 13:30 03/10/20 15:12 DC 03/10/20 05:58 Allergies Coded Allergies: Penicillins (Verified Allergy, Severe, RESP DEPRESSION/SOB, 01/04/20) latex (Verified Allergy, Unknown, 03/08/20) Christy Morales MD March 11, 2020 15:37
[2020-03-11 18:00] VITALS: BP 168/88
[2020-03-11 20:32] VITALS: BP 160/81
--- NOTE | 2020-03-11 23:11 | ROOPDOC ---
[facility] Report Of Operation Report of Operation DATE OF PROCEDURE: 03/10/20 PREOPERATIVE DIAGNOSIS: small bowel obstruction POSTOPERATIVE DIAGNOSIS: small bowel obstruction, port site incisional hernia (epigastric), tiny hernias through mesh x 2 (subcetimeter) FINDINGS: a long loop of bowel adhered to the mesh on the anterior abdominal wall, multiple bowel loop adhesions, 2 subcentimeter parietal hernias that went through the mesh and 1 port site hernia at the epigastric area (1 cm) PROCEDURE: Robotic assisted laparoscopic lysis of adhesion, primary repair of 3 tiny (subcentimeter parietal incisional hernias) SURGEON: Nino Kahn MD WATERSHED TENDER: ANESTHESIA: General Anesthesia SPECIMENS: none ESTIMATED BLOOD LOSS: 20 mL URINE OUTPUT: 100 ML DRAINS: NONE COMPLICATIONS: NONE POSTOPERATIVE CONDITION: STABLE, EXTUBATED TO PACU DESCRIPTION OF PROCEDURE: Patient was given a dose of Ancef 2 g IV for wound prophylaxis. He is brought to the operating room, placed supine on the table. Compression boots with TEDs were placed on both extremities were DVT prophylaxis. Gen. endotracheal anesthesia started. A Jack catheter was placed for urine output monitoring. Both of his arms were tucked. His abdomen was then widely prepped and draped in usual sterile fashion. We paused for a surgical timeout using both pre-incision safety checklist to verify correct patient, procedure site and additional clinical information prior to beginning the procedure I entered the abdomen through a left upper quadrant incision. A Veress needle was inserted and controlled fashion. Proper placement confirming saline drop technique. CO2 insufflation started to pressure 15 mmHg. This was then exchanged for a 5 mm port placed under direct vision laparoscope. On initial laparoscopy there are visible loops of bowel adhered to the mesh, noted to be peristalsing. There was no free fluid/ascites. No signs of any incarceration or strangulation of bowel. There was also some omentum adhered to the upper part of the bowel at the midline. There were distended loops of bowel. Time to ascertain where the exact transition point is. The robotic trochars were placed along the patient's left side and the 5 mm port was exchanged for an 8 mm robotic trocar to a total of four 8 mm trochars. The da Maggie tower was then positioned in place and the trocar stalk to the robotic arms. The instruments were placed under direct vision. I used a robotic scissors connected to monopolar cautery, forced bipolar forceps connected to bipolar cautery and the tips up fenestrated grasper. I didn't scrub in to control of the camera and instruments at the surgeon's console. With the camera pointed up, the omental adhesions were lysed using Bovie cautery. Parts of the mesh at the left superolateral side seems more adhered to the omentum than to the abdominal wall as this was coming down with the omentum and not staying at the abdominal wall. I then shifted cutting the mesh to keep it at the abdominal wall. The omental additions were then fully taken down. There was roughly about 1 cm defect containing the omentum incarcerated through what looks like a previous trocar site hernia at the epigastric area and this was reduced. I then turned my attention to the adhered bowel to the mesh. Using cold sharp dissection without energy the bowel was meticulously dissected free from the mesh. This took about 20-30 minutes taking it off from the mesh. The bowels were then inspected and no deep serosal injuries noted. I noted 2 tiny subcentimeter hernia defects that seems to be at right lower side through the mesh. The original 3 cm umbilical defect seems to be still well covered by the mesh and there does not seem to be any recurrence. After taking down the bowel from the mesh, I followed the bowels as it swung upward towards the RUQ and I continued lysing the bowels away from the abdominal wall which was adhered over the right upper quadrant abdominal wall area. After completing lysis and then switched to a downward view of the camera and the interbowel adhesions were lysed sharply while running the bowel retrogradely starting at the terminal ileum. There were multiple adhesions along the bowel that we lysed though I did leave some interbowel adhesions which were obviously not causing obstruction. I ran this back to roughly about the mid jejunum which was distended. All the bowel seems to be freely moving around with a few leftover interbowel adhesions. I again examined the previously involved bowels adhered to the mesh to look for injury and I was satisfied that there were no serosal tears that need to be reinforced. These bowels were peristalsing well. I again ran the bowel antegradely this time making sure there is no injury to the involved bowel. After doing so under laparoscopic guidance, a transversus abdominis plane block was placed along the patient's left lateral abdominal wall using one 4% Marcaine and 1% lidocaine combination total total of 50 mL. The abdomen was then deflated, all ports were removed. The left upper quadrant port seems to be enl arged with the manipulation of the trochars as I placed a 0 Vicryl stitch to close the fascia at this area. The rest of the port site incisions were closed with skin closure with 4-0 Monocryl. Dermabond was then used for dressing Patient tolerated the procedure well, he was successfully awakened, extubated and brought to recovery room in stable condition. NINO KAHN MD March 11, 2020 23:11
[2020-03-12 06:00] VITALS: BP 136/67
[2020-03-12 06:34] LABS: MEAN CORPUSCULAR HEMOGLOBIN 30.5 pg (27.0-33.0); MEAN CORPUSCULAR HGB CONC 34.9 g/dl (32.0-36.5); MEAN CORPUSCULAR VOLUME 87.6 fl (80.0-96.0); PLATELET COUNT, AUTOMATED 330 10^3/uL (150-450); RED BLOOD COUNT 4.91 10^6/uL (4.30-6.10); WHITE BLOOD COUNT 8.1 10^3/uL (4.0-10.0)
[2020-03-12 06:58] LABS: ALT/SGPT 41 U/L (12-78); BILIRUBIN,TOTAL 0.6 MG/DL (0.2-1.0); BLOOD UREA NITROGEN 15 MG/DL (7-18); CALCIUM LEVEL 8.4 MG/DL (8.8-10.2); CARBON DIOXIDE LEVEL 30 MEQ/L (21-32); CHLORIDE LEVEL 103 MEQ/L (98-107); CREATININE FOR GFR 0.76 MG/DL (0.70-1.30); GLOMERULAR FILTRATION RATE > 60.0 (>49); GLUCOSE, FASTING 88 MG/DL (70-100); POTASSIUM SERUM 3.6 MEQ/L (3.5-5.1); SODIUM LEVEL 141 MEQ/L (136-145); TOTAL PROTEIN 5.8 GM/DL (6.4-8.2)
[2020-03-12] MEDS: FLUoxetine 20 MG CAP PO SCH (08:25)
[2020-03-12] MEDS: ATORVASTATIN 20 MG TAB PO SCH (08:25)
[2020-03-12] MEDS: ENOXAPARIN 40MG/0.4ML SYRINGE (J1650 PER 10MG) SC SCH (08:25)
[2020-03-12] MEDS: ALVIMOPAN 12 MG CAPSULE (ENTEREG) PO SCH ×2 (08:25→21:56)
[2020-03-12] MEDS: LOSARTAN 25 MG TAB PO SCH (08:26)
--- NOTE | 2020-03-12 10:56 | IPNPDOC ---
Text Note Date of Service The patient was seen on 03/12/20. NOTE Patient's NG tube was discontinued last night is placed on clear liquids. He seems to be tolerating a clear liquid still he is reporting some mild abdominal cramping in the upper abdomen. Denies any nausea. He has had one bowel movement last night he is intermittently passing flatus VS nontachycardic, afebrile I/O NG tube discontinued BMs 1 postop On exam, Patient still looks comfortable his abdomen seems to me a slightly more distended than it was yesterday with the NG tube on him. Tympanitic to percussion he does have active bowel sounds. Minimal discomfort along the prior umbilical hernia repair site nontender on the port sites. He has 4 ports sites which are all covered with Dermabond and healing accordingly. Impression: POD2 RA lap lysis of adhesion, release of SBO He seems to me is slightly more distended today so forward progress still does not seem to be efficient. He is not complaining of any nausea. I advised him to ambulate more to the hallways today to try to encourage flatus. I will keep him on the clear liquids though we might come back on it to be starts getting nauseated or his abdominal distentions continues to or starts to bother him. Keep him on Entereg and minimize narcotic use. VS,Nadirbone, I+O VS, Nadirbone, I+O Laboratory Tests 03/12/20 06:12 Vital Signs Date Time Temp Pulse Resp B/P (MAP) Pulse Ox O2 Delivery O2 Flow Rate FiO2 03/12/20 08:26 156/84 03/12/20 06:00 99.0 60 16 92 Room Air 03/10/20 20:15 2.0 I&O- Last 24 Hours up to 6 AM 03/12/20 06:00 Intake Total 540 ml Balance 540 ml DUC GUTIÉRREZ MD March 12, 2020 10:56
[2020-03-12] MEDS: MIRALAX *UNIT DOSE* 17GM PACKET PO SCH (11:07)
[2020-03-12 14:00] VITALS: BP 156/78
--- NOTE | 2020-03-12 16:32 | IPNPDOC ---
Date Seen The patient was seen on 03/12/20. Progress Note SUBJECTIVE: POD 2 lysis of adhesions, repair of 3 small hernias. Removed NG tube last evening after having another BM, no increased abd pain. Tolerating clear liquids well but abdominal distension still present. Surgery watching cautiously, encouraging ambulation. Patient denies chest pain, shortness of breath, fevers. OBJECTIVE: VITAL SIGNS: Please see below PHYSICAL EXAMINATION: CONSTITUTIONAL: Appears comfortable, AAO x 3 EYES: PERRLA, EOM intact HENT, MOUTH: Normocephalic, atraumatic, moist mucous membranes, NG tube to gravity NECK: SUPPLE, no JVD, no lymphadenopathy, no carotid bruit CV: Regular rate and rhythm, S1S2 normal, no murmurs/rubs/gallops RESPIRATORY: Clear to auscultation bilaterally, no rales/rhonchi/wheezes GI: mildly distended abdomen, BS in 4 quadrants, soft, mildly tender in periumbilical area, no rebound or guarding, no organomegaly : Deferred MUSCULOSKELETAL: Normal ROM. No cyanosis, clubbing, swelling, joint deformity, extremity edema INTEGUMENTARY: 4 new but clean operative incisions on abdomen, multiple well healed abdominal scars. Skin intact, no rashes, no lesions, no erythema NEUROLOGIC: Cranial Nerves II-XII are intact, no focal deficits PSYCHIATRIC: Mood and affect are normal LABORATORY DATA: Please see below CURRENT MEDICATIONS: See below IMAGING: No new imaging. ASSESSMENT: Patient is a 64 y/o M recurrent small bowel obstruction POD 2 for s/p lysis of adhesions, repair of 3 small hernias. PLAN: 1. Recurrent small bowel obstruction POD 2 for s/p lysis of adhesions, repair of 3 small hernias. Tolerating clears well but not proceeding forward with diet at this time. Being cautious with abdomen being slightly distended still. C/w encouraging ambulation, trying to minimize narcotic use, entereg. F/u Dr. Osbaldo blair - surgery. 2. HTN. Elevated to 150's systolic. Started on PO meds from home today, may need adjustment. Consider low dose lasix as patient has been on fluid for days. 3. HLD. C/w statin. 4. Depression. Denies HI/SI. C/w duloxetine. 5. DVT px. SCDs, enoxaparin DISPOSITION: Currently admitted under inpatient status. Plan is discharge home when medically improved. VS, I&O, 24H, Fishbone Vital Signs/I&O Vital Signs Date Time Temp Pulse Resp B/P (MAP) Pulse Ox O2 Delivery O2 Flow Rate FiO2 03/12/20 14:00 98.5 78 16 156/78 (104) 96 Room Air 03/10/20 20:15 2.0 I&O- Last 24 Hours up to 6 AM 03/12/20 05:59 Intake Total 300 ml Output Total 850 ml Balance -550 ml Laboratory Data 24H LABS Laboratory Tests 2 03/12/20 06:12: Nucleated Red Blood Cells % (auto) 0.0, Anion Gap 8, Glomerular Filtration Rate > 60.0, Calcium Level 8.4L, Total Bilirubin 0.6, Aspartate Amino Transf (AST/SGOT) 28, Alanine Aminotransferase (ALT/SGPT) 41, Alkaline Phosphatase 87, Total Protein 5.8L, Albumin 3.0L, Albumin/Globulin Ratio 1.07 CBC/BMP Laboratory Tests 03/12/20 06:12 Current Medications Current Medications Medications (Trade) Dose Ordered Sig/Ki Route PRN Reason Start Time Stop Time Status Last Admin Dose Admin Alvimopan (Entereg) 12 mg BID PO 03/10/20 21:00 03/17/20 20:59 03/12/20 08:25 Atorvastatin Calcium (Lipitor) 80 mg DAILY PO 03/09/20 13:00 03/12/20 08:25 Enoxaparin Sodium (Lovenox) 40 mg DAILY SC 03/09/20 09:00 03/12/20 08:25 Fentanyl Citrate (Sublimaze) 25 mcg Q5MP PRN IV PAIN LEVEL 5-10 03/10/20 15:15 03/10/20 16:15 DC Fluoxetine HCl (PROzac) 40 mg DAILY PO 03/09/20 13:00 03/12/20 08:25 Heparin Sodium (Porcine) (Heparin) 5,000 units Q8H SQ 03/08/20 14:00 03/08/20 14:59 DC 03/08/20 14:20 Home Med (Med Rec Complete!) ASDIRECTED XX 03/08/20 14:30 03/08/20 14:26 DC Ketorolac Tromethamine (ToRADol) 15 mg Q6H PRN IV PAIN 03/10/20 15:15 03/15/20 15:14 03/11/20 22:11 Lactated Ringer's 1,000 ml @ 100 mls/hr Q10H IV 03/10/20 15:15 03/10/20 16:15 DC Losartan Potassium (Cozaar) 25 mg DAILY PO 03/09/20 13:00 03/12/20 08:26 Metoclopramide HCl (REGLAN INJection) 10 mg Q6HP PRN IV NAUSEA OR VOMITING 03/10/20 15:15 03/10/20 16:15 DC Morphine Sulfate (Morphine Sulfate Inj) 1 mg Q4HP PRN IV MODERATE PAIN (PS 5-7) 03/08/20 14:00 03/08/20 21:41 Morphine Sulfate (Morphine Sulfate Inj) 2 mg Q8HP PRN IV SEVERE PAIN (PS 8-10) 03/08/20 14:00 03/11/20 13:47 Ondansetron HCl (ZOFRAN INJection) 4 mg Q4HP PRN IV NAUSEA OR VOMITING 03/10/20 15:15 03/10/20 16:15 DC Ondansetron HCl (ZOFRAN INJection) 4 mg Q6HP PRN IV NAUSEA OR VOMITING 03/08/20 15:15 03/10/20 10:11 Polyethylene Glycol (Miralax) 1 pkt DAILY PO 03/12/20 09:00 03/12/20 11:07 Sodium Chloride 1,000 ml @ 100 mls/hr Q10H IV 03/08/20 13:30 03/10/20 15:12 DC 03/10/20 05:58 Allergies Coded Allergies: Penicillins (Verified Allergy, Severe, RESP DEPRESSION/SOB, 01/04/20) latex (Verified Allergy, Unknown, 03/08/20) Christy Morales MD March 12, 2020 16:32
[2020-03-12] MEDS: KETOROLAC 30 MG/ML 1ML VIAL IV PRN (16:37)
[2020-03-12 22:00] VITALS: BP 140/77
[2020-03-13 06:03] VITALS: BP 154/86
[2020-03-13 06:23] LABS: HEMATOCRIT 44.2 % (42.0-52.0); HEMOGLOBIN 15.7 g/dl (13.5-17.5); MEAN CORPUSCULAR HEMOGLOBIN 30.9 pg (27.0-33.0); MEAN CORPUSCULAR HGB CONC 35.5 g/dl (32.0-36.5); PLATELET COUNT, AUTOMATED 346 10^3/uL (150-450); RED BLOOD COUNT 5.08 10^6/uL (4.30-6.10); WHITE BLOOD COUNT 9.1 10^3/uL (4.0-10.0)
[2020-03-13 06:45] LABS: ALT/SGPT 44 U/L (12-78); BILIRUBIN,TOTAL 0.6 MG/DL (0.2-1.0); BLOOD UREA NITROGEN 8 MG/DL (7-18); CALCIUM LEVEL 8.5 MG/DL (8.8-10.2); CARBON DIOXIDE LEVEL 31 MEQ/L (21-32); CHLORIDE LEVEL 104 MEQ/L (98-107); CREATININE FOR GFR 0.86 MG/DL (0.70-1.30); GLOMERULAR FILTRATION RATE > 60.0 (>49); GLUCOSE, FASTING 114 MG/DL (70-100); POTASSIUM SERUM 3.4 MEQ/L (3.5-5.1); SODIUM LEVEL 141 MEQ/L (136-145); TOTAL PROTEIN 5.8 GM/DL (6.4-8.2)
[2020-03-13] MEDS ORDERED: POTASSIUM CHLORIDE 10 MEQ SR TABLET PO ONE (08:00)
[2020-03-13 09:05] VITALS: BP 154/86
[2020-03-13] MEDS: ATORVASTATIN 20 MG TAB PO SCH (09:05)
[2020-03-13] MEDS: LOSARTAN 25 MG TAB PO SCH (09:05)
[2020-03-13] MEDS: MIRALAX *UNIT DOSE* 17GM PACKET PO SCH (09:05)
[2020-03-13] MEDS: FLUoxetine 20 MG CAP PO SCH (09:05)
[2020-03-13] MEDS: ENOXAPARIN 40MG/0.4ML SYRINGE (J1650 PER 10MG) SC SCH (09:05)
[2020-03-13] MEDS: ALVIMOPAN 12 MG CAPSULE (ENTEREG) PO SCH (09:05)
[2020-03-13] MEDS ORDERED: PEG1POW PO (11:17)
--- NOTE | 2020-03-13 13:39 | DS.PDOC ---
Discharge Summary General Date of Admission March 08, 2020 at 13:00 Date of Discharge 03/13/20 Discharge Summary PROCEDURES PERFORMED DURING STAY: None. ADMITTING DIAGNOSES: 1. SBO. DISCHARGE DIAGNOSES: 1. SBO. COMPLICATIONS/CHIEF COMPLAINT: Small Bowel Obstruction. HISTORY OF PRESENT ILLNESS: Patient states that on 03/06/20 he developed worsening abdominal pain, right upper and lower quadrant wrapping around the right flank, sharp in character, intermittent but also constant at times. Movement made pain it worse, nothing made it better. Patient admits to passing gas at home but last bowel movement was 03/06/20 at 2 PM, was nonbloody. Patient states to drink a lot of water at home and work. Associated symptoms include nausea, nonbloody vomiting x4, worsened lethargy, abdominal distention. Denies chest pain, SOB, cough, fevers, chills, sick contacts, headache, lightheadedness or dizziness. Patient presented to [facility] ER, WBC 20K, pain was persistent and surgery evaluated and suggested admission. SBO confirmed on CT abdomen. NG tube was placed and hospitalist admitted him on 03/06/20 for SBO. On 03/07/20, pain and abdominal distention was not improved. Patient continued to have high output from NG tube. WBC later normalized with fluid, NPO status, NG tube placement. Decision was made to transfer to another facility, as there was not improvement and they did not have surgical coverage over the weekend. He was accepted to our facility for transfer and for further management/treatment of SBO. Upon arrival to our facility on 03/08/20, patient was uncomfortable with pain localized mainly in the right upper and lower quadrant, right flank. Pain improved with morphine. VS were stable. Patient had 300 cc of fecal appearing liquid in the bedside container with NG on intermittent suction. Patient was recently admitted 01/04/20-01/08/20 for SBO at [facility], which re solved nonsurgically. Surgery (Dr. Hylton) evaluated patient and decision was made to see watch and see if resolution of SBO occurs on its own, as it had on time prior. Repeat labs showed WBC wnl, no electrolyte abnormalities. Patient denied nausea, fevers, chills. . HOSPITAL COURSE: Patient is a 64 y/o M recurrent small bowel obstruction POD 2 for s/p lysis of adhesions, repair of 3 small hernias. Recurrent small bowel obstruction POD 2 for s/p lysis of adhesions, repair of 3 small hernias. Tolerating clears well but not proceeding forward with diet at this time. Being cautious with abdomen being slightly distended still. C/w encouraging ambulation, trying to minimize narcotic use, patient was seen by Dr. juarez, patient has tolerated his breakfast very well and he will be fed lites today. If he tolerates without any complaints and problems. He'll be discharged home today. Patient had a large BM this morning, and on examination he has good bowel sounds, discussed with Dr. Poole at bedside and recommended to discharge patient after lunch and follow with him in one week as an outpatient . DISCHARGE MEDICATIONS: Please see below. ALLERGIES: Please see below. PHYSICAL EXAMINATION ON DISCHARGE: VITAL SIGNS: Please see below. GENERAL: Normal HEENT: PERRLA. Extraocular muscles intact NECK: Supple CARDIOVASCULAR EXAMINATION: S1, S2, regular RESPIRATORY EXAMINATION: Clear to A&P ABDOMINAL EXAMINATION: Benign EXTREMITIES: No clubbing, cyanosis, edema SKIN: Normal NEUROLOGICAL EXAMINATION: No focal motor sensory deficit PSYCHIATRIC EXAMINATION: Normal LABORATORY DATA: Please see below. IMAGING: Chest x-ray: Normal PROGNOSIS: Good ACTIVITY: As tolerated. DIET: As tolerated DISCHARGE PLAN: Discharged home DISPOSITION: 01 Home, Self-Care. DISCHARGE INSTRUCTIONS: 1. Follow with Dr. juarez an outpatient. ITEMS TO FOLLOWUP ON ON OUTPATIENT: 1. As above. DISCHARGE CONDITION: Stable. TIME SPENT ON DISCHARGE: 22 minutes. Vital Signs/I&Os Vital Signs Date Time Temp Pulse Resp B/P (MAP) Pulse Ox O2 Delivery O2 Flow Rate FiO2 03/13/20 09:05 154/86 03/13/20 06:03 98.5 68 17 95 Room Air 03/10/20 20:15 2.0 I&O- Last 24 Hours up to 6 AM 03/13/20 06:00 Intake Total 1750 ml Output Total 0 ml Balance 1750 ml Laboratory Data Labs 24H Laboratory Tests 2 03/13/20 06:01: Nucleated Red Blood Cells % (auto) 0.0, Anion Gap 6L, Glomerular Filtration Rate > 60.0, Calcium Level 8.5L, Total Bilirubin 0.6, Aspartate Amino Transf (AST/SGOT) 23, Alanine Aminotransferase (ALT/SGPT) 44, Alkaline Phosphatase 91, Total Protein 5.8L, Albumin 3.0L, Albumin/Globulin Ratio 1.07 CBC/BMP Laboratory Tests 03/13/20 06:01 Discharge Medications Scheduled Acetaminophen (Tylenol 8 Hour) 650 Mg Tablet.er, 650 MG PO DAILY, (Reported) Aspirin (Aspirin EC) 81 Mg Tablet.dr, 81 MG PO DAILY, (Reported) Atorvastatin Calcium (Atorvastatin Calcium) 80 Mg Tablet, 80 MG PO DAILY, (Reported) Fluoxetine Hcl (Fluoxetine HCl) 40 Mg Capsule, 40 MG PO DAILY, (Reported) Losartan Potassium (Losartan Potassium) 25 Mg Tablet, 25 MG PO DAILY, (Reported) Multivitamin/Iron/Folic Acid (Centrum Adults Tablet) 1 Each Tablet, 1 TAB PO DAILY, (Reported) Polyethylene Glycol 3350 (Polyethylene Glycol 3350) 17 Gm Powd.pack, 1 PKT PO DAILY Allergies Coded Allergies: Penicillins (Verified Allergy, Severe, RESP DEPRESSION/SOB, 01/04/20) latex (Verified Allergy, Unknown, 03/08/20) DUC MOREIRA MD March 13, 2020 13:38
--- NOTE | 2020-03-13 15:05 | IPNPDOC ---
Text Note Date of Service The patient was seen on 03/13/20. NOTE Patient tolerated clear liquids and has had 2 large bowel movements yesterday and reports he has had another one earlier today. He is passing flatus spontaneously now. He reports minimal discomfort around her incisions are. VS nontachycardic, afebrile I/O NG tube discontinued BMs 3 postop On exam, Patient looks comfortable Abdomen is much less distended than it was yesterday. Slightly still tympanitic to percussion. Minimally tender around the port site incisions. No rebound or guarding. Impression: POD3 RA lap lysis of adhesion, release of SBO Advance to soft diet. If he is able to tolerate soft diet he can go home with this type of diet for the next week or so and maintain MiraLAX once daily. He can follow up with me in the clinic in about 2 weeks' time. VS,Nadirbone, I+O VS, Nadirbone, I+O Laboratory Tests 03/13/20 06:01 Vital Signs Date Time Temp Pulse Resp B/P (MAP) Pulse Ox O2 Delivery O2 Flow Rate FiO2 03/13/20 09:05 154/86 03/13/20 06:03 98.5 68 17 95 Room Air 03/10/20 20:15 2.0 I&O- Last 24 Hours up to 6 AM 03/13/20 05:59 Intake Total 1890 ml Balance 1890 ml DUC GUTIÉRREZ MD March 13, 2020 15:05
== END 2020-03-13 13:20 | disposition home or self-care (01) | DRG 227 ==
LOC: M MS5PR 13:00
PROVIDERS: ADMIT Internal Medicine Nephrology; ATTEND Internal Medicine
PROC: 0WQF4ZZ Repair Abdominal Wall, Percutaneous Endoscopic Approach (ICD-10-PCS; 2020-03-10)
PROC: 8E0W4CZ Robotic Assisted Procedure of Trunk Region, Percutaneous Endoscopic Approach (ICD-10-PCS; 2020-03-10)
PROC: 0DN84ZZ Release Small Intestine, Percutaneous Endoscopic Approach (ICD-10-PCS; principal; 2020-03-10 10:41)
DX: K56.50 Intestinal adhesions [bands], unspecified as to partial versus complete obstruction (principal); I10 Essential (primary) hypertension; R74.0 Nonspecific elevation of levels of transaminase and lactic acid dehydrogenase [LDH]; K43.2 Incisional hernia without obstruction or gangrene; Z79.899 Other long term (current) drug therapy; Z88.0 Allergy status to penicillin; Z91.040 Latex allergy status; F32.9 Major depressive disorder, single episode, unspecified; E78.5 Hyperlipidemia, unspecified

== ENCOUNTER 2023-09-27 13:44 | Inpatient (IN) | payer BC ==
[~2023-09-27] VITALS: Ht 175.3 cm; Wt 87.0 kg
[~2023-09-27 13:44] MED LIST changes: +ASPI-161 PO; +ATOR80TA59 PO; +FLUO40CA PO; +LOSA25TA13 PO; +MULT1TAB50 PO; +POLY17PO18 PO; +TYLE650T38 PO
[2023-09-27 15:00] VITALS: BP 145/85; TEMP 99; O2SAT 95
[2023-09-27] MEDS ORDERED: POLY17PO10 PO (15:25)
[2023-09-27] MEDS ORDERED: OMEG12002 PO (15:25)
[2023-09-27 17:39] LABS: BASO % 0.3 % (0.0-1.0); EOS # 0.1 10^3/uL (0.0-0.5); EOS % 1.5 % (0.0-3.0); HEMATOCRIT 48.7 % (42.0-52.0); HEMOGLOBIN 16.8 g/dl (13.5-17.5); LYMPH # 0.8 10^3/uL (1.5-5.0); LYMPH % 10.2 % (24.0-44.0); MEAN CORPUSCULAR HEMOGLOBIN 31.2 pg (27.0-33.0); MEAN CORPUSCULAR HGB CONC 34.5 g/dl (32.0-36.5); MEAN CORPUSCULAR VOLUME 90.5 fl (80.0-96.0); MONO # 0.9 10^3/uL (0.0-0.8); MONO % 11.2 % (2.0-8.0); NEUTROPHILS # 5.9 10^3/uL (1.5-8.5); NEUTROPHILS % 76.5 % (36.0-66.0); PLATELET COUNT, AUTOMATED 325 10^3/uL (150-450); RED BLOOD COUNT 5.38 10^6/uL (4.30-6.10); WHITE BLOOD COUNT 7.8 10^3/uL (4.0-10.0)
[2023-09-27 17:59] LABS: ALBUMIN 3.5 G/DL (3.2-5.2); ALKALINE PHOSPHATASE 91 U/L (46-116); ALT/SGPT 348 U/L (7.0-40); AST/SGOT 216 U/L (<34); BILIRUBIN,TOTAL 0.9 MG/DL (0.3-1.2); BLOOD UREA NITROGEN 21 MG/DL (9-23); CALCIUM LEVEL 8.7 MG/DL (8.3-10.6); CARBON DIOXIDE LEVEL 28 MMOL/L (20-31); CHLORIDE LEVEL 106 MMOL/L (98-107); CREATININE FOR GFR 0.97 MG/DL (0.70-1.30); GLOMERULAR FILTRATION RATE > 60.0 (>49); GLUCOSE, FASTING 103 MG/DL (74-106); MAGNESIUM LEVEL 1.8 MG/DL (1.8-2.4); POTASSIUM SERUM 4.7 MMOL/L (3.5-5.1); SODIUM LEVEL 144 MMOL/L (136-145); TOTAL PROTEIN 6.7 G/DL (5.7-8.2)
[2023-09-27] MEDS: ATORVASTATIN 20 MG TAB PO SCH (18:01)
[2023-09-27] MEDS: FLUoxetine 20MG CAP PO SCH (18:01)
[2023-09-27] MEDS: LOSARTAN 25 MG TAB PO SCH (18:01)
[2023-09-27 20:00] VITALS: BP 137/75; TEMP 98.8; O2SAT 95
[2023-09-27] MEDS ORDERED: ONDANSETRON 4MG 2ML VIAL IV PRN (21:55)
[2023-09-27] MEDS: HEPARIN SOD (PORCINE) 5000UNITS/ML 1ML VIAL/SYRINGE SC SCH (22:03)
[2023-09-28 04:43] VITALS: BP 117/43; TEMP 98.8; O2SAT 93
[2023-09-28] MEDS: HEPARIN SOD (PORCINE) 5000UNITS/ML 1ML VIAL/SYRINGE SC SCH ×3 (06:08→20:36)
[2023-09-28 06:27] LABS: HEMOGLOBIN 15.6 g/dl (13.5-17.5); MEAN CORPUSCULAR HEMOGLOBIN 30.7 pg (27.0-33.0); MEAN CORPUSCULAR HGB CONC 33.9 g/dl (32.0-36.5); MEAN CORPUSCULAR VOLUME 90.6 fl (80.0-96.0); PLATELET COUNT, AUTOMATED 304 10^3/uL (150-450); RED BLOOD COUNT 5.08 10^6/uL (4.30-6.10); WHITE BLOOD COUNT 5.5 10^3/uL (4.0-10.0)
[2023-09-28 06:53] LABS: ALBUMIN 3.2 G/DL (3.2-5.2); ALKALINE PHOSPHATASE 81 U/L (46-116); ALT/SGPT 364 U/L (7.0-40); AST/SGOT 175 U/L (<34); BILIRUBIN,TOTAL 0.8 MG/DL (0.3-1.2); BLOOD UREA NITROGEN 22 MG/DL (9-23); CALCIUM LEVEL 8.7 MG/DL (8.3-10.6); CARBON DIOXIDE LEVEL 28 MMOL/L (20-31); CHLORIDE LEVEL 105 MMOL/L (98-107); GLOMERULAR FILTRATION RATE > 60.0 (>49); GLUCOSE, FASTING 108 MG/DL (74-106); POTASSIUM SERUM 4.3 MMOL/L (3.5-5.1); PREALBUMIN 19.7 MG/DL (10.0-40.0); SODIUM LEVEL 141 MMOL/L (136-145); TOTAL PROTEIN 6.1 G/DL (5.7-8.2)
[2023-09-28] MEDS: FLUoxetine 20MG CAP PO SCH (08:46)
[2023-09-28] MEDS: ACETAMINOPHEN 650MG ER TAB (TYLENOL ARTHRITIS) PO SCH (08:46)
[2023-09-28] MEDS: ATORVASTATIN 20 MG TAB PO SCH (08:46)
[2023-09-28] MEDS: LOSARTAN 25 MG TAB PO SCH (08:47)
[2023-09-28 20:00] VITALS: BP 146/84; TEMP 97.8; O2SAT 95
[2023-09-29] MEDS: HEPARIN SOD (PORCINE) 5000UNITS/ML 1ML VIAL/SYRINGE SC SCH ×3 (05:53→21:12)
[2023-09-29 06:00] VITALS: BP 134/64; TEMP 97.5; O2SAT 94
[2023-09-29 08:42] VITALS: BP 146/78; TEMP 97.5; O2SAT 96
[2023-09-29] MEDS ORDERED: FLUZONE HIGH DOSE(65YR UP)QUAD/PF 240MCG/0.7ML SYRINGE IM.IMMUN ONE (09:00)
[2023-09-29] MEDS ORDERED: PREVNAR-20 VACCINE 0.5ML SYRINGE IM.IMMUN ONE (09:15)
[2023-09-29] MEDS: ACETAMINOPHEN 650MG ER TAB (TYLENOL ARTHRITIS) PO SCH (09:37)
[2023-09-29] MEDS: LOSARTAN 25 MG TAB PO SCH (09:37)
[2023-09-29] MEDS: ATORVASTATIN 20 MG TAB PO SCH (09:38)
[2023-09-29] MEDS: FLUoxetine 20MG CAP PO SCH (09:39)
[2023-09-29] MEDS ORDERED: MOM 30ML SUSPENSION UDC PO ONE (12:55)
[2023-09-29 14:03] VITALS: BP 153/86; TEMP 97.3; O2SAT 95
[2023-09-29 20:00] VITALS: BP 151/70; TEMP 98.1; O2SAT 95
[2023-09-30] MEDS: HEPARIN SOD (PORCINE) 5000UNITS/ML 1ML VIAL/SYRINGE SC SCH ×3 (05:40→20:19)
[2023-09-30 06:00] VITALS: BP 145/68; TEMP 97.3; O2SAT 95
[2023-09-30 08:48] LABS: HEMOGLOBIN 17.1 g/dl (13.5-17.5); MEAN CORPUSCULAR HGB CONC 34.9 g/dl (32.0-36.5); MEAN CORPUSCULAR VOLUME 88.9 fl (80.0-96.0); PLATELET COUNT, AUTOMATED 313 10^3/uL (150-450); RED BLOOD COUNT 5.51 10^6/uL (4.30-6.10); WHITE BLOOD COUNT 7.9 10^3/uL (4.0-10.0)
[2023-09-30 09:05] LABS: INR 1.17; PROTHROMBIN TIME 14.5 SECONDS (12.5-14.5)
[2023-09-30 09:06] LABS: PARTIAL THROMBOPLASTIN TIME 25.4 SECONDS (24.8-34.2)
[2023-09-30 09:25] LABS: ALBUMIN 3.7 G/DL (3.2-5.2); ALKALINE PHOSPHATASE 93 U/L (46-116); ALT/SGPT 173 U/L (7.0-40); AST/SGOT 48 U/L (<34); BILIRUBIN,TOTAL 0.6 MG/DL (0.3-1.2); BLOOD UREA NITROGEN 24 MG/DL (9-23); CARBON DIOXIDE LEVEL 28 MMOL/L (20-31); CHLORIDE LEVEL 104 MMOL/L (98-107); CREATININE FOR GFR 0.81 MG/DL (0.70-1.30); GLOMERULAR FILTRATION RATE > 60.0 (>49); GLUCOSE, FASTING 82 MG/DL (74-106); POTASSIUM SERUM 4.3 MMOL/L (3.5-5.1); SODIUM LEVEL 144 MMOL/L (136-145); TOTAL PROTEIN 6.8 G/DL (5.7-8.2)
[2023-09-30] MEDS: MIRALAX *UNIT DOSE* 17GM PACKET PO SCH (09:31)
[2023-09-30] MEDS: ACETAMINOPHEN 650MG ER TAB (TYLENOL ARTHRITIS) PO SCH (09:32)
[2023-09-30] MEDS: FLUoxetine 20MG CAP PO SCH (09:32)
[2023-09-30] MEDS: LOSARTAN 25 MG TAB PO SCH (09:32)
[2023-09-30] MEDS: ATORVASTATIN 20 MG TAB PO SCH (09:32)
[2023-09-30 14:00] VITALS: BP 145/70; TEMP 98.1; O2SAT 97
[2023-09-30 19:51] VITALS: BP 146/69; TEMP 98.1; O2SAT 97
[2023-09-30 22:21] VITALS: TEMP 97.7
[2023-09-30 22:51] VITALS: TEMP 98.5
[2023-09-30 23:34] VITALS: TEMP 98.7
[2023-10-01 01:34] VITALS: TEMP 98
[2023-10-01] MEDS: HEPARIN SOD (PORCINE) 5000UNITS/ML 1ML VIAL/SYRINGE SC SCH (05:13)
[2023-10-01 05:15] VITALS: BP 143/71; TEMP 97.7; O2SAT 95
[2023-10-01 06:39] LABS: HEMATOCRIT 46.9 % (42.0-52.0); HEMOGLOBIN 16.2 g/dl (13.5-17.5); MEAN CORPUSCULAR HEMOGLOBIN 30.4 pg (27.0-33.0); MEAN CORPUSCULAR HGB CONC 34.5 g/dl (32.0-36.5); PLATELET COUNT, AUTOMATED 338 10^3/uL (150-450); RED BLOOD COUNT 5.33 10^6/uL (4.30-6.10); WHITE BLOOD COUNT 7.9 10^3/uL (4.0-10.0)
[2023-10-01 07:12] LABS: BLOOD UREA NITROGEN 12 MG/DL (9-23); CALCIUM LEVEL 8.9 MG/DL (8.3-10.6); CARBON DIOXIDE LEVEL 30 MMOL/L (20-31); CHLORIDE LEVEL 103 MMOL/L (98-107); CREATININE FOR GFR 0.83 MG/DL (0.70-1.30); GLOMERULAR FILTRATION RATE > 60.0 (>49); GLUCOSE, FASTING 112 MG/DL (74-106); POTASSIUM SERUM 3.8 MMOL/L (3.5-5.1); SODIUM LEVEL 140 MMOL/L (136-145)
[2023-10-01 08:45] VITALS: BP 141/72
[2023-10-01] MEDS: LOSARTAN 25 MG TAB PO SCH (08:45)
[2023-10-01] MEDS: MIRALAX *UNIT DOSE* 17GM PACKET PO SCH (08:45)
[2023-10-01] MEDS: ACETAMINOPHEN 650MG ER TAB (TYLENOL ARTHRITIS) PO SCH (08:45)
[2023-10-01] MEDS: ATORVASTATIN 20 MG TAB PO SCH (08:45)
[2023-10-01] MEDS: FLUoxetine 20MG CAP PO SCH (08:45)
== END 2023-10-01 13:36 | disposition home or self-care (01) | DRG 247 ==
LOC: M MSPAV 15:00 → PREOBSVTOIN 16:16
PROVIDERS: ADMIT Internal Medicine; ATTEND Family Medicine
DX: K56.50 Intestinal adhesions [bands], unspecified as to partial versus complete obstruction (principal); I10 Essential (primary) hypertension; Z79.899 Other long term (current) drug therapy; Z79.82 Long term (current) use of aspirin; Z88.0 Allergy status to penicillin; Z91.040 Latex allergy status; F41.9 Anxiety disorder, unspecified; F32.A Depression, unspecified; E78.5 Hyperlipidemia, unspecified; K57.90 Diverticulosis of intestine, part unspecified, without perforation or abscess without bleeding; E66.9 Obesity, unspecified; Z68.28 Body mass index [BMI] 28.0-28.9, adult

== ENCOUNTER 2024-04-05 15:54 | Observation (INO) | payer SELFPAY ==
[~2024-04-05] VITALS: Ht 177.8 cm; Wt 91.0 kg
[~2024-04-05 15:54] MED LIST changes: -ASPI-161 PO; +ASPI-615 PO; +OMEG12002 PO; +POLY17PO10 PO
[2024-04-05 17:00] VITALS: BP 152/82; TEMP 98.1; O2SAT 96
[2024-04-05] MEDS: LR 1,000 ML IV SCH (18:59)
[2024-04-05] MEDS: BISACODYL 10MG SUPP PR ONE (19:06)
[2024-04-05 20:05] VITALS: BP 157/82; TEMP 98.2; O2SAT 96
[2024-04-05] MEDS ORDERED: ONDA-282 PO (21:06)
[2024-04-05] MEDS ORDERED: LOSA50TA28 PO (21:06)
[2024-04-05] MEDS ORDERED: ATOR40TA75 PO (21:06)
[2024-04-05] MEDS ORDERED: TRAZ-252 PO (21:06)
[2024-04-05] MEDS ORDERED: ARIP1TAB6 PO (21:06)
[2024-04-05] MEDS ORDERED: HOME MED LIST COMPLETE! XX SCH (21:10)
[2024-04-06 04:36] VITALS: BP 133/62; TEMP 98.8; O2SAT 96
[2024-04-06] MEDS: HEPARIN SOD (PORCINE) 5000UNITS/ML 1ML VIAL/SYRINGE SC SCH (05:21)
[2024-04-06] MEDS: ONDANSETRON 4MG 2ML VIAL IV PRN (05:23)
[2024-04-06 06:09] LABS: HEMATOCRIT 42.8 % (42.0-52.0); MEAN CORPUSCULAR HEMOGLOBIN 30.7 pg (27.0-33.0); MEAN CORPUSCULAR VOLUME 87.5 fl (80.0-96.0); PLATELET COUNT, AUTOMATED 337 10^3/uL (150-450); RED BLOOD COUNT 4.89 10^6/uL (4.30-6.10)
[2024-04-06 06:40] LABS: BLOOD UREA NITROGEN 12 MG/DL (9-23); CALCIUM LEVEL 8.5 MG/DL (8.3-10.6); CARBON DIOXIDE LEVEL 28 MMOL/L (20-31); CHLORIDE LEVEL 107 MMOL/L (98-107); CREATININE FOR GFR 0.76 MG/DL (0.70-1.30); GLOMERULAR FILTRATION RATE > 60.0 (>49); GLUCOSE, FASTING 90 MG/DL (74-106); MAGNESIUM LEVEL 1.8 MG/DL (1.8-2.4); SODIUM LEVEL 140 MMOL/L (136-145)
[2024-04-06] MEDS: ATORVASTATIN 20 MG TAB PO SCH (08:51)
[2024-04-06] MEDS: FLUoxetine 20MG CAP PO SCH (08:52)
[2024-04-06] MEDS: LOSARTAN 50MG TABLET PO SCH (08:52)
[2024-04-06 11:55] VITALS: BP 136/71; TEMP 98.8; O2SAT 96
[2024-04-06] MEDS: MIRALAX *UNIT DOSE* 17GM PACKET PO SCH (12:25)
[2024-04-06] MEDS: BISACODYL 10MG SUPP PR ONE (12:25)
[2024-04-06] MEDS: SENOKOT S TAB PO SCH (12:44)
[2024-04-06 19:59] VITALS: BP 125/56; TEMP 98.2; O2SAT 96
[2024-04-06] MEDS: traZODone 50 MG TAB PO SCH (20:47)
[2024-04-07 04:00] VITALS: BP 125/58; TEMP 97.9; O2SAT 94
[2024-04-07 05:59] LABS: BASO # 0.1 10^3/uL (0.0-0.2); BASO % 0.8 % (0.0-1.0); EOS # 0.2 10^3/uL (0.0-0.5); HEMATOCRIT 42.1 % (42.0-52.0); LYMPH # 1.5 10^3/uL (1.5-5.0); LYMPH % 25.8 % (24.0-44.0); MEAN CORPUSCULAR HEMOGLOBIN 31.1 pg (27.0-33.0); MEAN CORPUSCULAR HGB CONC 35.6 g/dl (32.0-36.5); MEAN CORPUSCULAR VOLUME 87.3 fl (80.0-96.0); MONO # 0.6 10^3/uL (0.0-0.8); MONO % 9.5 % (2.0-8.0); NEUTROPHILS # 3.6 10^3/uL (1.5-8.5); NEUTROPHILS % 60.7 % (36.0-66.0); PLATELET COUNT, AUTOMATED 330 10^3/uL (150-450); RED BLOOD COUNT 4.82 10^6/uL (4.30-6.10); WHITE BLOOD COUNT 5.9 10^3/uL (4.0-10.0)
[2024-04-07 06:26] LABS: BLOOD UREA NITROGEN 10 MG/DL (9-23); CALCIUM LEVEL 8.6 MG/DL (8.3-10.6); CARBON DIOXIDE LEVEL 28 MMOL/L (20-31); CHLORIDE LEVEL 107 MMOL/L (98-107); CREATININE FOR GFR 0.84 MG/DL (0.70-1.30); GLOMERULAR FILTRATION RATE > 60.0 (>49); GLUCOSE, FASTING 99 MG/DL (74-106); SODIUM LEVEL 139 MMOL/L (136-145)
[2024-04-07 08:45] VITALS: BP 152/73
[2024-04-07] MEDS ORDERED: DULC10SU2 PR (11:58)
[2024-04-07] MEDS ORDERED: MIRA33506 PO (11:58)
[2024-04-07] MEDS ORDERED: SENN-52 PO (11:58)
== END 2024-04-07 14:00 | disposition home or self-care (01) ==
LOC: INTOOBSV 17:04 → M MSPAV 17:04
PROVIDERS: ADMIT Internal Medicine Nephrology; ATTEND Internal Medicine
DX: K56.609 Unspecified intestinal obstruction, unspecified as to partial versus complete obstruction (principal); E78.5 Hyperlipidemia, unspecified; I10 Essential (primary) hypertension; F32.A Depression, unspecified; F41.9 Anxiety disorder, unspecified; Z91.040 Latex allergy status; Z88.0 Allergy status to penicillin; Z79.899 Other long term (current) drug therapy
CPT/HCPCS: 36415; 74018; 80048; 83735; 85025; 85027; 87040; 96361; 96374; J2405